=== PATIENT | male | born 1945 | race Caucasian/White ===

== ENCOUNTER 2019-06-25 07:22 | Emergency (ER) | payer MEDICARE, OTHER, SELFPAY ==
--- NOTE | ~2019-06-25 | CT_ITS ---
EXAMINATION: CTA abdomen pelvis EXAM DATE: 06/25/2019 09:25 INDICATION: Abdominal, groin pain, right flank pain radiating into groin. History kidney stones. Lupis victorino bypass. Renal artery aneurysm. TECHNIQUE: Spiral CT angiogram of the abdomen and pelvis was performed following intravenous injectio n of 100 mL Omnipaque 350. Axial, coronal and sagittal images were reviewed. The dose-length produc t (DLP) for this examination was 1346.74 mGy-cm. The exposure was tailored according to patient size (auto mA exposure control), and iterative reconstruction (ASIR) was used as additional dose reductio n technique. Comparison is made to prior examination from 02/10/2013. FINDINGS: There is a 1.6 cm right renal artery aneurysm, was 1.5 cm in 2013. The liver, spleen, adre nal glands and pancreas are unremarkable. Gallbladder is unremarkable. No biliary obstruction. Por laura and splenic veins are patent. Kidneys enhance symmetrically. There is no hydronephrosis. There is a 2 mm stone in the distal aspect of the right ureter, 2 cm from the ureterovesicular junction not obstructing at present. There is mild to moderate right perinephric fat stranding, mild on the left, may not be related to the ureteral stone. The prostate is unremarkable. The bladder is unremarkabl e. There is no retroperitoneal or pelvic lymphadenopathy. There is mild scattered arteriosclerotic disease. The appendix is normal. There are surgical changes from intact gastric bypass surgery. There is exp ected amount of colonic stool. No free intraperitoneal gas. Mild cardiomegaly. Small left inguina l fat-containing hernia. There is mild scattered colonic diverticulosis. There is no adjacent inflam matory change to suggest diverticulitis. The lung bases are unremarkable. There are no osteoblastic or osteolytic lesions identified. IMPRESSION: 1. Right distal ureteral 2 mm stone without hydronephrosis. Could be intermittently obstructing. 2. 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 3. Mild colonic diverticulosis. Reviewed, dictated and finalized at location A. IMPRESSION: 1. Right distal ureteral 2 mm stone without hydronephrosis. Could be intermitt ently obstructing. 2. 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 3. Mild colonic diverticulosis.
--- NOTE | 2019-06-25 07:33 | ED.GENADULT ---
HPI - General Adult General Chief complaint: Abdominal Pain Stated complaint: possible kidney stone History of Present Illness HPI narrative: Douglas is a 73-year-old man with a past medical history of diabetes, high blood pressure, and kidney stones, and a AAA that presented to the emergency department with right groin pain. He reported that he woke up around 4 in the morning with the pain in his right flank and groin. When he went to urinate the pain began worse. He reports 9/10 colicky pain on the right side. It feels just like his last kidney stone. He denies any fevers, chills, chest pain and near-syncope. He admits nausea but no vomiting with the pain. He has some mild shortness of breath when the pain is at its worst. Related Data Home Medications Medication Instructions Recorded Confirmed calcium carbonate [Calcium 500] 500 mg PO DAILY 06/25/19 06/25/19 ferrous sulfate 324 mg PO DAILY 06/25/19 06/25/19 glimepiride 2 mg PO DAILY 06/25/19 06/25/19 losartan 100 mg PO DAILY 06/25/19 06/25/19 lovastatin 5 mg PO DAILY 06/25/19 06/25/19 metformin 1,000 mg PO BID 06/25/19 06/25/19 multivitamin,aq-fexu-aupvytta 1 tablet PO DAILY 06/25/19 06/25/19 [Complete Multivitamin] vitamin I66-dfvle acid 1 kateyrna SUBLINGUAL DAILY 06/25/19 06/25/19 Allergies Allergy/AdvReac Type Severity Reaction Status Date / Time hydrochlorothiazide AdvReac Intermediate CRAMPING Verified 09/02/15 08:42 triamterene AdvReac Intermediate CRAMPING Verified 09/02/15 08:42 Review of Systems Constitutional: Constitutional: Reports as per HPI Eyes: Eyes: Reports no additional eye complaints ENT: Reports system reviewed and no additional complaints, except as documented Cardiovascular: Cardiovascular: Denies chest pain, Denies rapid heart rate and Denies radiating jaw, neck or arm pain Respiratory: Respiratory: Reports no additional respiratory complaints, Denies cough, Denies dyspnea and Denies wheezing Gastrointestinal: Gastrointestinal: Reports as per HPI Genitourinary: Genitourinary: Reports as per HPI Musculoskeletal: Musculoskeletal: Reports no additional musculoskeletal complaints Integumentary/Breasts: Skin/Breast: Reports system reviewed and no additional complaints, except as docu Neurologic: Reports system reviewed and no additional complaints, except as documented Psychiatric: Psychiatric: Reports no additional psychiatric complaints Endocrine: Endocrine: Reports no additional endocrine complaints Hematologic/Lymphatic: Hematologic/Lymphatic: Reports no additional hematologic/lymphatic complaints Allergic/Immunologic: Allergic/Immunologic: Reports no additional allergic/immunologic complaints Exam Const: General: no acute distress and alert Orientation/consciousness: patient oriented x3 Limitations: No altered mental status Other: was pacing around writhing in pain HENMT: Other: normocephalic, atraumatic Eyes: Conjunctivae: conjunctivae normal Pupils: Equal, round and reactive pupils present Neck: Neck: normal visual inspection Chest: Chest palpation & inspection: normal inspection of the chest Resp: Effort & Inspection: normal respiratory effort Auscultation: clear to auscultation bilaterally, no rales and no wheezes Cardio: Rate: regular rate Rhythm: regular rhythm Heart sounds: no murmurs GI: GI Palp: Yes Soft to palpation, No Tenderness to palpation present (GI) and No Guarding due to palpation present (GI) Other: no pulsating mass in the abdomen : General: Yes no CVA tenderness Testes: Testes normal Back/Spine/Pelvis: Back: no CVA tenderness Skin: General skin exam: normal color Rashes: no rashes Neuro: General: patient oriented x3 and moves all extremities Extrem: General: normal to inspection Psych: Mental Status: mental status grossly normal Course Course Emergency Course: Douglas was seen and evaluated. He was given Toradol, morphine and Zofran for his pain and nausea. I ordered la
[2019-06-25 07:35] VITALS: BP 165/91; PULSE 56; RESP 20; TEMP 36.9; O2SAT 98
[2019-06-25 07:39] LABS: Glucose Point of Care 164 (65-105)
[2019-06-25] MEDS: ONDANSETRON INJ 4 MG/2 ML VIAL IV PUSH (07:40)
[2019-06-25] MEDS: KETOROLAC 30 MG/ML VIAL (*BKC) IV PUSH (07:41)
[2019-06-25] MEDS: MORPHINE SULFATE 4 MG/ML INJ IV PUSH (07:45)
[2019-06-25 07:54] LABS: Basophils Absolute Auto 0.02 K/mm3 (0.00-0.10); Basophils Percent Auto 0.3 % (0.0-1.0); Eosinophils Absolute Auto 0.16 K/mm3 (0.02-0.50); Eosinophils Percent Auto 2.5 % (1.0-6.0); Hematocrit 40.3 % (37.0-46.0); Hemoglobin 13.9 g/dL (12.4-15.3); Immature Granulocyte Absolute 0.04 K/mm3 (0.00-0.00); Immature Granulocyte Percent A 0.6 % (0.0-0.0); Lymphocytes Absolute Auto 1.02 K/mm3 (1.10-4.50); Mean Corpuscular HGB Conc 34.5 g/dL (32.0-36.0); Mean Corpuscular Hemoglobin 29.8 pg (27.0-31.0); Mean Corpuscular Volume 86.5 fL (78.0-102.0); Mean Platelet Volume 9.2 fl (8.7-11.0); Monocytes Absolute Auto 0.47 K/mm3 (0.10-0.90); Monocytes Percent Auto 7.4 % (2.0-11.0); Neutrophils Absolute Auto 4.7 K/mm3 (1.7-7.2); Neutrophils Percent Auto 73.2 % (50.0-70.0); Platelet Count Result 179 K/mm3 (150-420); Red Blood Count 4.66 M/mm3 (4.70-6.10); Red Cell Distribution Width 12.9 % (11.6-14.4); White Blood Count 6.4 K/mm3 (4.8-10.8)
[2019-06-25 08:08] LABS: Lipase 243 U/L (73-393)
[2019-06-25 08:09] VITALS: BP 157/89; PULSE 58; RESP 20; O2SAT 98
[2019-06-25 08:16] LABS: Lactic Acid 2.3 mmol/L (0.4-2.0)
[2019-06-25 08:23] LABS: Add Urine Microscopic? YES; Appearance Urine Clear (Clear); Bilirubin Urine Negative (Negative); Blood Urine 3+ (Negative); Color Urine Yellow (Yellow); Glucose Urine UA Negative (Negative); Ketones Urine 1+ (Negative); Leukocyte Esterase Ur Negative (Negative); Nitrate Urine Negative (Negative); Protein Urine Negative (Negative); Specific Grav Ur 1.015 (1.010-1.020); Urobilinogen Urine 0.2 mg/dL (0.2-1.0); pH Urine 6.5 (5.0-8.0)
[2019-06-25 08:24] LABS: Alanine Aminotransferase 48 U/L (16-63); Albumin Level 3.4 g/dL (3.4-5.0); Alkaline Phosphatase 92 U/L (46-116); Anion Gap 13.9 mmol/L (7-16); Aspartate Amino Transferase 29 U/L (15-37); Bilirubin,Total 0.4 mg/dL (0.00-1.00); Blood Urea Nitrogen 16 mg/dL (7-18); Calcium 8.8 mg/dL (8.5-10.1); Carbon Dioxide 26 mmol/L (21-32); Chloride 103 mmol/L (98-108); Estimated CRCL calculation 69 ml/min; Estimated Glomerular Filt Rate > 60; Glucose 172 mg/dL (70-99); Osmolality Calculated 293 mOsm/kg (285-295); Potassium 3.9 mmol/L (3.5-5.1); Sodium 139 mmol/L (136-145); Total Protein 7.2 g/dL (6.4-8.2)
[2019-06-25 08:35] LABS: Bacteria Urine Trace /hpf; RBC Urine 21-50 /hpf (0-2); WBC Urine 0-3 /hpf (0-3)
[2019-06-25 09:10] VITALS: BP 185/100; PULSE 64; RESP 18; O2SAT 97
--- NOTE | 2019-06-25 09:10 | PC.NURSE ---
Pt. back from CT, reports pain is coming back againg since moving around and reports some nausea. Rates pain at about 5 again. ERP informed, order obtained.
[2019-06-25] MEDS: MORPHINE SULFATE 2 MG/ML INJ IV PUSH (09:12)
[2019-06-25 10:44] VITALS: BP 132/74; PULSE 64; RESP 20; O2SAT 99
== END 2019-06-25 10:49 | disposition home or self-care (01) ==
PROVIDERS: Emergency Provider Family Medicine; PCP Internal Medicine
DX: N20.1 Calculus of ureter (principal); E11.9 Type 2 diabetes mellitus without complications; I10 Essential (primary) hypertension
CPT/HCPCS: 36415; 74174; 80053; 81001; 83605; 83690; 85025; 96374; 96375; 96376; 99283; 99284; J1885; J2270; J2405; Q9965

== ENCOUNTER 2019-10-31 08:02 | Outpatient (CLI) | payer MEDICARE, SELFPAY ==
[2019-10-31 08:17] LABS: Add Urine Microscopic? YES; Appearance Urine Clear (Clear); Bilirubin Urine Negative (Negative); Blood Urine Negative (Negative); Color Urine Yellow (Yellow); Glucose Urine UA Negative (Negative); Ketones Urine Negative (Negative); Leukocyte Esterase Ur Trace LEU/UL (Negative); Nitrate Urine Negative (Negative); Protein Urine Negative (Negative); Specific Grav Ur 1.025 (1.010-1.020); Urobilinogen Urine 0.2 mg/dL (0.2-1.0); pH Urine 5.5 (5.0-8.0)
[2019-10-31 08:25] LABS: Hemoglobin A1C 7.7 % (<5.7)
[2019-10-31 08:27] LABS: Bacteria Urine 2+ /hpf; Squamous Epithelial Cell Urine Few /hpf (Few)
[2019-10-31 09:07] LABS: Creatinine Urine 112.45 mg/dL (40-278); MALB Creatinine Ratio 5.7 mg/g (0-30); Microalbumin Urine Random 6.5 mg/L
[2019-10-31 09:26] LABS: Alanine Aminotransferase 45 U/L (16-63); Albumin Level 3.4 g/dL (3.4-5.0); Alkaline Phosphatase 104 U/L (46-116); Anion Gap 10.3 mmol/L (7-16); Aspartate Amino Transferase 33 U/L (15-37); Bilirubin,Total 0.4 mg/dL (0.00-1.00); Blood Urea Nitrogen 14 mg/dL (7-18); Calcium 8.7 mg/dL (8.5-10.1); Carbon Dioxide 32 mmol/L (21-32); Chloride 103 mmol/L (98-108); Cholesterol 200 mg/dL (0-200); Creatine Kinase 46 U/L (39-308); Estimated Glomerular Filt Rate > 60; Glucose 135 mg/dL (70-99); HDL Direct 40 mg/dL (40-60); LDL Cholesterol Calculated 127 mg/dL (<130); Osmolality Calculated 294 mOsm/kg (285-295); Potassium 4.3 mmol/L (3.5-5.1); Sodium 141 mmol/L (136-145); Total Protein 7.1 g/dL (6.4-8.2); Triglycerides 164 mg/dL (0-150)
== END 2019-10-31 08:03 | disposition home or self-care (01) ==
LOC: CHSLAB 08:03
PROVIDERS: PCP Internal Medicine; Visit Provider Internal Medicine
DX: E78.2 Mixed hyperlipidemia (principal); E11.65 Type 2 diabetes mellitus with hyperglycemia
CPT/HCPCS: 36415; 80053; 80061; 81001; 82043; 82550; 83036

== ENCOUNTER 2019-11-14 07:44 | Outpatient (RCR) | payer MEDICARE, OTHER, SELFPAY ==
--- NOTE | 2019-11-14 07:58 | PTOPEVAL ---
Thank you for referring Douglas Lyons to [facility]. Please review, sign, date and return this plan of care AMBROCIO. I agree with and certify that the following plan of care is medically necessary. Referring Physician Date Admitting Provider: Attending Provider: Michael Walker MD Referring Provider: *PT Outpatient Evaluation Start: 11/14/19 07:01 Freq: Status: Active Protocol: Document 11/14/19 07:02 TRINY (Rec: 11/14/19 07:30 TRINY [id number]) Therapy Assessment Status Assessment Status Assessment Status Evaluation Outpatient Past Medical History Cardiovascular History Hx Aneurysm Yes: AAA Hx Hypercholesterolemia Yes Hx Hypertension Yes Genitourinary History Hx Kidney Stones Yes Endocrine History Hx Diabetes Yes Other History Hx Other Surgeries Yes: Gastric Bypass Evaluation Information Problem Diagnosis leg weakness, peripheral neuropathy Onset 11/08/19 Additional Evaluation Detail LEFS=[id number] Subjective Information Pt. reports that he has had Query Text:As Reported By Patient/ difficulty with balance for Family several years. He reports having rehabed in the past with success. He states that given that he cannot get out as much due to Covid 19, he has become sedentary and notes more weakness. He reports that stairs are becoming difficult and states that his bedroom is upstairs. He reports that he reaches out for stable objects with walking. He reports that he wants to make steps easier and states that he wants to improve his balance. Prior Level of Function Activity Level (Last 3 Months) Occupation retired Hand Dominance Right Activity of Daily Living Ability Independent Indoor/Home Mobility Independent Community Mobility Independent Stairs Ability Independent Functional Cognition (Planning, Shopping Independent , Taking Medications) Cooking Yes Cleaning Yes Laundry Yes Shopping Yes Driving Yes Home Setting Home Type House Environmental [place]
== END 2019-12-10 09:25 | disposition home or self-care (01) ==
LOC: CHSPT 07:44
PROVIDERS: PCP Internal Medicine; Visit Provider Internal Medicine
DX: G62.9 Polyneuropathy, unspecified (principal); M62.81 Muscle weakness (generalized); R26.2 Difficulty in walking, not elsewhere classified
CPT/HCPCS: 97110; 97112; 97161

== ENCOUNTER 2020-01-01 10:37 | Outpatient (CLI) | payer MEDICARE, SELFPAY ==
[2020-01-02 18:39] LABS: SARS-CoV-2 RNA PCR Negative
== END 2020-01-01 10:38 | disposition home or self-care (01) ==
PROVIDERS: PCP Internal Medicine; Visit Provider Internal Medicine
DX: Z20.828 Contact with and (suspected) exposure to other viral communicable diseases (principal)
CPT/HCPCS: 87635; C9803; U0003

== ENCOUNTER 2020-02-05 08:19 | Outpatient (CLI) | payer MEDICARE, SELFPAY ==
[2020-02-06 13:52] LABS: SARS-CoV-2 RNA PCR Negative
== END 2020-02-05 08:20 | disposition home or self-care (01) ==
LOC: CHSLAB 08:23
PROVIDERS: PCP Internal Medicine; Visit Provider Internal Medicine
DX: Z20.828 Contact with and (suspected) exposure to other viral communicable diseases (principal)
CPT/HCPCS: 87635; C9803; U0003

== ENCOUNTER 2020-02-12 08:01 | Outpatient (CLI) | payer MEDICARE, SELFPAY ==
[2020-02-12 08:13] LABS: Add Urine Microscopic? NO; Appearance Urine Clear (Clear); Bilirubin Urine Negative (Negative); Blood Urine Negative (Negative); Color Urine Yellow (Yellow); Glucose Urine UA Negative (Negative); Ketones Urine Negative (Negative); Leukocyte Esterase Ur Negative (Negative); Nitrate Urine Negative (Negative); Protein Urine Negative (Negative); Specific Grav Ur 1.025 (1.010-1.020); Urobilinogen Urine 0.2 mg/dL (0.2-1.0)
[2020-02-12 08:35] LABS: Hemoglobin A1C 7.9 % (<5.7)
[2020-02-12 08:39] LABS: Creatinine Urine 176.85 mg/dL (40-278); MALB Creatinine Ratio 10.2 mg/g (0-30); Microalbumin Urine Random 18.2 mg/L
[2020-02-12 09:47] LABS: Anion Gap 6 mmol/L (8-16); Blood Urea Nitrogen 14 mg/dL (7-18); Calcium 8.9 mg/dL (8.5-10.1); Carbon Dioxide 32 mmol/L (21-32); Chloride 105 mmol/L (98-108); Estimated Glomerular Filt Rate > 60; Glucose 143 mg/dL (70-99); Osmolality Calculated 298 mOsm/kg (285-295); Potassium 4.4 mmol/L (3.5-5.1); Prostate Specific Antigen 0.9 ng/mL (< OR = 4.0); Sodium 143 mmol/L (136-145)
== END 2020-02-12 08:02 | disposition home or self-care (01) ==
LOC: CHSLAB 08:03
PROVIDERS: PCP Internal Medicine; Visit Provider Internal Medicine
DX: E11.65 Type 2 diabetes mellitus with hyperglycemia (principal); I10 Essential (primary) hypertension; Z12.5 Encounter for screening for malignant neoplasm of prostate
CPT/HCPCS: 36415; 80048; 81003; 82043; 83036; 84153; G0103

== ENCOUNTER 2020-06-11 07:54 | Outpatient (CLI) | payer MEDICARE, SELFPAY ==
[2020-06-11 08:18] LABS: Creatinine Urine 184.78 mg/dL (40-278); MALB Creatinine Ratio 8.5 mg/g (0-30); Microalbumin Urine Random 15.8 mg/L
[2020-06-11 08:19] LABS: Hemoglobin A1C 7.6 % (<5.7)
[2020-06-11 08:42] LABS: Anion Gap 6 mmol/L (8-16); Blood Urea Nitrogen 15 mg/dL (7-18); Calcium 8.8 mg/dL (8.5-10.1); Carbon Dioxide 32 mmol/L (21-32); Chloride 102 mmol/L (98-108); Estimated Glomerular Filt Rate > 60; Glucose 148 mg/dL (70-99); Osmolality Calculated 293 mOsm/kg (285-295); Potassium 4.4 mmol/L (3.5-5.1); Sodium 140 mmol/L (136-145)
== END 2020-06-11 07:55 | disposition home or self-care (01) ==
LOC: CHSLAB 07:56
PROVIDERS: PCP Internal Medicine; Visit Provider Internal Medicine
DX: E11.65 Type 2 diabetes mellitus with hyperglycemia (principal)
CPT/HCPCS: 36415; 80048; 82043; 83036

== ENCOUNTER 2020-06-19 13:14 | Outpatient (CLI) | payer MEDICARE, OTHER, SELFPAY ==
--- NOTE | ~2020-06-19 | US_ITS ---
EXAMINATION: US carotid duplex BI DATE: 06/19/2020 13:38 INDICATION: Transient ischemic attack. TECHNIQUE: Grayscale, color Doppler, and pulsed Doppler images of the cervical carotid arteries were obtained. The degree of vessel stenosis is placed in one of the following categories: normal, <50%, 5 0-69%, >=70% but less than near-occlusion, near-occlusion, or total occlusion. Note that percent sten osis relative to normal distal artery lumen diameter is indirectly measured from velocity measurement s as described by Sal, et al. Radiology 2003; 229:340-346. COMPARISON: None. FINDINGS: RIGHT: The right common carotid artery (CCA) peak systolic velocity (PSV) is 128 cm/s. The right internal ca rotid artery (ICA) PSV is 66 cm/s. The right ICA end-diastolic velocity (EDV) is 21 cm/s. The right I CA/CCA PSV ratio is 0.5. Grayscale and color Doppler images yield an estimate of 0% diameter reductio n from plaque in the ICA. There is antegrade flow in the right vertebral artery. LEFT: The left CCA PSV is 124 cm/s. The left ICA PSV is 74 cm/s. The left ICA EDV is 14 cm/s. The left ICA/ CCA PSV ratio is 0.6. Grayscale and color Doppler images yield an estimate of 0% diameter reduction f rom plaque in the ICA. There is antegrade flow in the left vertebral artery. IMPRESSION: 1. Normal internal carotid arteries. Reviewed, dictated and finalized at location A. RETTE SELLER
== END 2020-06-19 13:15 | disposition home or self-care (01) ==
LOC: CHSIMG 13:16
PROVIDERS: PCP Internal Medicine; Visit Provider Internal Medicine
DX: G45.9 Transient cerebral ischemic attack, unspecified (principal); R56.9 Unspecified convulsions
CPT/HCPCS: 93880

== ENCOUNTER 2020-06-21 06:51 | Outpatient (CLI) | payer MEDICARE, OTHER, SELFPAY ==
--- NOTE | ~2020-06-21 | MR_ITS ---
EXAMINATION: MR brain/brain stem wo con DATE: 06/21/2020 08:04 INDICATION: Seizures. TECHNIQUE: Magnetic resonance imaging (MRI) of the brain and brainstem was performed without intraven ous contrast. Sequences included sagittal and axial T1-weighted FSE, axial diffusion-weighted FS EPI, axial T2*-weighted GRE, axial T2-weighted FLAIR Propeller, axial T2-weighted Propeller, coronal T2-w eighted FLAIR, and coronal T1-weighted 3D FSPGR. Apparent diffusion coefficient (ADC) maps were creat ed. COMPARISON: Brain MRI 10/02/2016 FINDINGS: There are scattered areas of nonspecific increased T2-weighted signal intensity in the cere bral white matter and stuart, which is within normal limits for the patient's age. The hippocampi are n ormal and symmetric. There is no intracranial hemorrhage, acute infarction, or abnormal intracranial mass lesion. The ventricles are normal in size. There is a mucous retention cyst in left maxillary si nus. The mastoid air cells are normal. There are likely changes of left ocular lens replacement surge ry. IMPRESSION: 1. Normal aging brain. Reviewed, dictated and finalized at location A. PIECE ASSEMBLER IMPRESSION: 1. Normal aging brain.
== END 2020-06-21 06:52 | disposition home or self-care (01) ==
LOC: CHSIMG 06:55
PROVIDERS: PCP Internal Medicine; Visit Provider Internal Medicine
DX: G45.9 Transient cerebral ischemic attack, unspecified (principal); R56.9 Unspecified convulsions
CPT/HCPCS: 70551

== ENCOUNTER 2020-06-27 07:40 | Outpatient (CLI) | payer MEDICARE, OTHER, SELFPAY ==
--- NOTE | 2020-07-09 11:36 | WPDNEUROLOGY ---
Neurology EEG Report General Information Date of Study: 06/27/20 TEST eeg DIAGNOSIS seizures CONDITION OF RECORDING awake and drowsy EEG NUMBER [id number] CLINICAL HISTORY patient reported for years he has had episodes, always while sleeping, shaking, feeling weird and then eyes rolled back, subsequently little confused for a few minutes then is fine. EEG DESCRIPTION basic resting occipital frequency consists of large amount of low voltage 9 to 11 hertz per second alpha admixed with low-voltage 15 to 18 hertz per second beta. During drowsiness low-voltage beta activity seen diffusely. Multiple EKG regular artifacts are seen. Photic stimulation produced normal drive, hyperventilation not done. Non paroxysmal ,nonfocal, nonlateralizing. IMPRESSION Normal record
== END 2020-06-27 07:41 | disposition home or self-care (01) ==
PROVIDERS: PCP Internal Medicine; Visit Provider Internal Medicine
DX: R56.9 Unspecified convulsions (principal)
CPT/HCPCS: 95816

== ENCOUNTER 2020-08-15 07:59 | Outpatient (CLI) | payer MEDICARE, SELFPAY ==
[2020-08-15 08:55] LABS: Anion Gap 5 mmol/L (8-16); Blood Urea Nitrogen 21 mg/dL (7-18); Carbon Dioxide 29 mmol/L (21-32); Chloride 101 mmol/L (98-108); Estimated Glomerular Filt Rate > 60; Glucose 214 mg/dL (70-99); Osmolality Calculated 289 mOsm/kg (285-295); Potassium 5.3 mmol/L (3.5-5.1); Sodium 135 mmol/L (136-145)
== END 2020-08-15 08:00 | disposition home or self-care (01) ==
PROVIDERS: PCP Internal Medicine; Visit Provider Internal Medicine
DX: I10 Essential (primary) hypertension (principal)
CPT/HCPCS: 36415; 80048

== ENCOUNTER 2021-01-15 07:53 | Outpatient (CLI) | payer MEDICARE, SELFPAY ==
[2021-01-15 08:07] LABS: Add Urine Microscopic? NO; Appearance Urine Clear (Clear); Bilirubin Urine Negative (Negative); Blood Urine Negative (Negative); Color Urine Light Yellow (Yellow); Glucose Urine UA Negative (Negative); Ketones Urine Negative (Negative); Leukocyte Esterase Ur Negative LEU/UL (Negative); Nitrate Urine Negative (Negative); Protein Urine Negative (Negative); Specific Grav Ur 1.025 (1.010-1.020); Urobilinogen Urine 0.2 mg/dL (0.2-1.0)
[2021-01-15 08:15] LABS: Hemoglobin A1C 7.9 % (<5.7)
[2021-01-15 08:46] LABS: Creatinine Urine 137.03 mg/dL (40-278); MALB Creatinine Ratio 9.4 mg/g (0-30); Microalbumin Urine Random < 13.0 mg/L
[2021-01-15 09:03] LABS: Alanine Aminotransferase 58 U/L (16-63); Albumin Level 3.5 g/dL (3.4-5.0); Alkaline Phosphatase 82 U/L (46-116); Anion Gap 10 mmol/L (8-16); Aspartate Amino Transferase 28 U/L (15-37); Bilirubin,Total 0.3 mg/dL (0.00-1.00); Blood Urea Nitrogen 17 mg/dL (7-18); Calcium 8.6 mg/dL (8.5-10.1); Carbon Dioxide 28 mmol/L (21-32); Chloride 104 mmol/L (98-108); Cholesterol 199 mg/dL (0-200); Creatine Kinase 55 U/L (39-308); Estimated Glomerular Filt Rate > 60; Glucose 130 mg/dL (70-99); HDL Direct 37 mg/dL (40-60); LDL Cholesterol Calculated 103 mg/dL (<130); Osmolality Calculated 297 mOsm/kg (285-295); Potassium 4.7 mmol/L (3.5-5.1); Sodium 142 mmol/L (136-145); Total Protein 7.3 g/dL (6.4-8.2); Triglycerides 294 mg/dL (0-150)
[2021-01-18 23:09] LABS: Vitamin D 25 Hydroxy 36 ng/mL (30-100)
== END 2021-01-15 07:54 | disposition home or self-care (01) ==
LOC: CHSLAB 07:55
PROVIDERS: PCP Internal Medicine; Visit Provider Internal Medicine
DX: E11.65 Type 2 diabetes mellitus with hyperglycemia (principal); E55.9 Vitamin D deficiency, unspecified; E78.5 Hyperlipidemia, unspecified; I10 Essential (primary) hypertension
CPT/HCPCS: 36415; 80053; 80061; 81003; 82043; 82306; 82550; 83036

== ENCOUNTER 2021-04-13 07:42 | Outpatient (CLI) | payer MEDICARE, SELFPAY ==
[2021-04-13 08:07] LABS: Hemoglobin A1C 8.2 % (<5.7)
[2021-04-13 08:31] LABS: Anion Gap 11 mmol/L (8-16); Blood Urea Nitrogen 21 mg/dL (7-18); Calcium 8.6 mg/dL (8.5-10.1); Carbon Dioxide 30 mmol/L (21-32); Chloride 104 mmol/L (98-108); Cholesterol 173 mg/dL (0-200); Creatine Kinase 56 U/L (39-308); Estimated Glomerular Filt Rate > 60; Glucose 137 mg/dL (70-99); HDL Direct 42 mg/dL (40-60); LDL Cholesterol Calculated 87 mg/dL (<130); Osmolality Calculated 305 mOsm/kg (285-295); Potassium 4.5 mmol/L (3.5-5.1); Sodium 145 mmol/L (136-145); Triglycerides 221 mg/dL (0-150)
== END 2021-04-13 07:43 | disposition home or self-care (01) ==
LOC: CHSLAB 07:44
PROVIDERS: PCP Internal Medicine; Visit Provider Internal Medicine
DX: E78.2 Mixed hyperlipidemia (principal); E11.65 Type 2 diabetes mellitus with hyperglycemia
CPT/HCPCS: 36415; 80048; 80061; 82550; 83036

== ENCOUNTER 2021-09-25 07:41 | Outpatient (CLI) | payer MEDICARE, OTHER, SELFPAY ==
[2021-09-25 07:59] LABS: Basophils Absolute Auto 0.04 K/mm3 (0.00-0.10); Basophils Percent Auto 0.6 % (0.0-1.0); Eosinophils Absolute Auto 0.31 K/mm3 (0.02-0.50); Eosinophils Percent Auto 4.7 % (1.0-6.0); Hematocrit 36.8 % (37.0-46.0); Hemoglobin 12.3 g/dL (12.4-15.3); Immature Granulocyte Absolute 0.07 K/mm3 (0.00-0.00); Immature Granulocyte Percent A 1.1 % (0.0-0.0); Lymphocytes Absolute Auto 1.52 K/mm3 (1.10-4.50); Lymphocytes Percent Auto 22.8 % (18.0-42.0); Mean Corpuscular HGB Conc 33.4 g/dL (32.0-36.0); Mean Corpuscular Hemoglobin 29.9 pg (27.0-31.0); Mean Corpuscular Volume 89.5 fL (78.0-102.0); Mean Platelet Volume 8.9 fl (8.7-11.0); Monocytes Absolute Auto 0.62 K/mm3 (0.10-0.90); Monocytes Percent Auto 9.3 % (2.0-11.0); Neutrophils Absolute Auto 4.1 K/mm3 (1.7-7.2); Neutrophils Percent Auto 61.5 % (50.0-70.0); Platelet Count Result 200 K/mm3 (150-420); Red Blood Count 4.11 M/mm3 (4.70-6.10); Red Cell Distribution Width 12.7 % (11.6-14.4); White Blood Count 6.7 K/mm3 (4.8-10.8)
[2021-09-25 08:18] LABS: Creatinine Urine 140.08 mg/dL (40-278); MALB Creatinine Ratio 9.2 mg/g (0-30); Microalbumin Urine Random < 13.0 mg/L
[2021-09-25 08:25] LABS: Add Urine Microscopic? NO; Appearance Urine Clear (Clear); Bilirubin Urine Negative (Negative); Blood Urine Negative (Negative); Color Urine Yellow (Yellow); Glucose Urine UA Negative (Negative); Ketones Urine Negative (Negative); Leukocyte Esterase Ur Negative LEU/UL (Negative); Nitrate Urine Negative (Negative); Protein Urine Negative (Negative); Specific Grav Ur 1.025 (1.010-1.020); Urobilinogen Urine 0.2 mg/dL (0.2-1.0)
[2021-09-25 08:49] LABS: Alanine Aminotransferase 85 U/L (16-63); Albumin Level 3.3 g/dL (3.4-5.0); Alkaline Phosphatase 102 U/L (46-116); Anion Gap 6 mmol/L (8-16); Aspartate Amino Transferase 38 U/L (15-37); Bilirubin,Total 0.2 mg/dL (0.00-1.00); Blood Urea Nitrogen 25 mg/dL (7-18); Carbon Dioxide 26 mmol/L (21-32); Chloride 107 mmol/L (98-108); Cholesterol 178 mg/dL (0-200); Creatine Kinase 46 U/L (39-308); Estimated Glomerular Filt Rate > 60; Glucose 118 mg/dL (70-99); HDL Direct 43 mg/dL (40-60); LDL Cholesterol Calculated 76 mg/dL (<130); Osmolality Calculated 293 mOsm/kg (285-295); Potassium 4.4 mmol/L (3.5-5.1); Prostate Specific Antigen 1.3 ng/mL (< OR = 4.0); Sodium 139 mmol/L (136-145); Total Protein 7.7 g/dL (6.4-8.2); Triglycerides 297 mg/dL (0-150); Uric Acid 6.9 mg/dL (3.5-7.2)
[2021-09-25 09:31] LABS: Hemoglobin A1C 8.7 % (<5.7)
[2021-09-29 04:41] LABS: Hepatitis A Antibody IgM Nonreactive; Hepatitis B Core Antibody Nonreactive (Nonreactive); Hepatitis B Surface Antigen Nonreactive (Nonreactive); Hepatitis C Signal to Cutoff 0.01 ratio (<1.00); Hepatitis C Virus Antibody Nonreactive (Nonreactive)
[2021-09-30 14:04] LABS: Vitamin D 25 Hydroxy 45 ng/mL (30-100)
== END 2021-09-25 07:42 | disposition home or self-care (01) ==
LOC: CHSLAB 07:44
PROVIDERS: PCP Internal Medicine; Visit Provider Internal Medicine
DX: E78.5 Hyperlipidemia, unspecified (principal); I10 Essential (primary) hypertension; E79.0 Hyperuricemia without signs of inflammatory arthritis and tophaceous disease; Z12.5 Encounter for screening for malignant neoplasm of prostate; N39.0 Urinary tract infection, site not specified; E55.9 Vitamin D deficiency, unspecified; E11.65 Type 2 diabetes mellitus with hyperglycemia; R74.9 Abnormal serum enzyme level, unspecified; R74.01 Elevation of levels of liver transaminase levels
CPT/HCPCS: 36415; 80053; 80061; 80074; 81003; 82043; 82306; 82550; 83036; 84153; 84550; 85025; G0103

== ENCOUNTER 2021-11-18 07:32 | Outpatient (CLI) | payer MEDICARE, SELFPAY ==
[2021-11-18 09:17] LABS: Alanine Aminotransferase 56 U/L (16-63); Albumin Level 3.3 g/dL (3.4-5.0); Alkaline Phosphatase 85 U/L (46-116); Anion Gap 9 mmol/L (8-16); Aspartate Amino Transferase 36 U/L (15-37); Bilirubin,Total 0.2 mg/dL (0.00-1.00); Blood Urea Nitrogen 21 mg/dL (7-18); Calcium 8.7 mg/dL (8.5-10.1); Carbon Dioxide 24 mmol/L (21-32); Chloride 106 mmol/L (98-108); Estimated Glomerular Filt Rate 59; Glucose 259 mg/dL (70-99); Osmolality Calculated 300 mOsm/kg (285-295); Potassium 4.6 mmol/L (3.5-5.1); Sodium 139 mmol/L (136-145); Total Protein 6.6 g/dL (6.4-8.2)
== END 2021-11-18 07:33 | disposition home or self-care (01) ==
LOC: CHSLAB 07:34
PROVIDERS: PCP Internal Medicine; Visit Provider Internal Medicine
DX: R94.5 Abnormal results of liver function studies (principal)
CPT/HCPCS: 36415; 80053

== ENCOUNTER 2022-01-12 07:53 | Outpatient (CLI) | payer MEDICARE, SELFPAY ==
[2022-01-12 08:34] LABS: Hemoglobin A1C 7.4 % (<5.7)
[2022-01-12 08:38] LABS: Alanine Aminotransferase 73 U/L (16-63); Albumin Level 3.4 g/dL (3.4-5.0); Alkaline Phosphatase 97 U/L (46-116); Anion Gap 8 mmol/L (8-16); Aspartate Amino Transferase 37 U/L (15-37); Bilirubin,Total 0.2 mg/dL (0.00-1.00); Blood Urea Nitrogen 18 mg/dL (7-18); Calcium 8.4 mg/dL (8.5-10.1); Carbon Dioxide 29 mmol/L (21-32); Chloride 107 mmol/L (98-108); Estimated Glomerular Filt Rate > 60; Glucose 97 mg/dL (70-99); Osmolality Calculated 299 mOsm/kg (285-295); Potassium 4.5 mmol/L (3.5-5.1); Sodium 144 mmol/L (136-145)
== END 2022-01-12 07:54 | disposition home or self-care (01) ==
LOC: CHSLAB 07:54
PROVIDERS: PCP Internal Medicine; Visit Provider Internal Medicine
DX: E11.65 Type 2 diabetes mellitus with hyperglycemia (principal)
CPT/HCPCS: 36415; 80053; 83036

== ENCOUNTER 2022-01-27 12:32 | Outpatient (CLI) | payer MEDICARE, SELFPAY ==
[2022-01-27 12:47] LABS: Basophils Absolute Auto 0.05 K/mm3 (0.00-0.10); Basophils Percent Auto 0.7 % (0.0-1.0); Eosinophils Absolute Auto 0.31 K/mm3 (0.02-0.50); Eosinophils Percent Auto 4.4 % (1.0-6.0); Hemoglobin 12.1 g/dL (12.4-15.3); Immature Granulocyte Absolute 0.07 K/mm3 (0.00-0.00); Immature Reticulocyte Fraction 11.9 % (2.0-16.52); Lymphocytes Absolute Auto 1.89 K/mm3 (1.10-4.50); Mean Corpuscular HGB Conc 33.6 g/dL (32.0-36.0); Mean Corpuscular Hemoglobin 30.5 pg (27.0-31.0); Mean Corpuscular Volume 90.7 fL (78.0-102.0); Mean Platelet Volume 9.1 fl (8.7-11.0); Monocytes Absolute Auto 0.57 K/mm3 (0.10-0.90); Monocytes Percent Auto 8.2 % (2.0-11.0); Neutrophils Absolute Auto 4.1 K/mm3 (1.7-7.2); Neutrophils Percent Auto 58.7 % (50.0-70.0); Platelet Count Result 224 K/mm3 (150-420); Red Blood Count 3.97 M/mm3 (4.70-6.10); Reticulocyte Percent 1.83 % (0.50-1.50); Reticulocytes Absolute 0.07 M/mm3 (0.02-0.1)
[2022-01-27 13:38] LABS: Ferritin 79 ng/mL (26-388); Iron 62 ug/dL (65-175)
[2022-01-27 13:51] LABS: Vitamin B12 > 2000 pg/mL (193-986)
== END 2022-01-27 12:33 | disposition home or self-care (01) ==
LOC: CHSLAB 12:34
PROVIDERS: PCP Internal Medicine; Visit Provider Internal Medicine
DX: D64.9 Anemia, unspecified (principal)
CPT/HCPCS: 36415; 82607; 82728; 83540; 85025; 85046

== ENCOUNTER 2022-02-10 09:50 | Outpatient (CLI) | payer MEDICARE, SELFPAY ==
[2022-02-10 10:09] LABS: Occult Blood Negative (Negative)
[2022-02-10 10:09] LABS: Occult Blood Negative (Negative)
[2022-02-10 10:09] LABS: Occult Blood Negative (Negative)
== END 2022-02-10 09:51 | disposition home or self-care (01) ==
LOC: CHSLAB 09:51
PROVIDERS: PCP Internal Medicine; Visit Provider Internal Medicine
DX: D64.9 Anemia, unspecified (principal)
CPT/HCPCS: 82272

== ENCOUNTER 2022-04-17 07:36 | Outpatient (CLI) | payer MEDICARE, SELFPAY ==
[2022-04-17 07:49] LABS: Basophils Absolute Auto 0.06 K/mm3 (0.00-0.10); Basophils Percent Auto 0.9 % (0.0-1.0); Eosinophils Absolute Auto 0.27 K/mm3 (0.02-0.50); Hematocrit 36.7 % (37.0-46.0); Hemoglobin 12.4 g/dL (12.4-15.3); Immature Granulocyte Absolute 0.04 K/mm3 (0.00-0.00); Immature Granulocyte Percent A 0.6 % (0.0-0.0); Lymphocytes Absolute Auto 1.81 K/mm3 (1.10-4.50); Lymphocytes Percent Auto 26.7 % (18.0-42.0); Mean Corpuscular HGB Conc 33.8 g/dL (32.0-36.0); Mean Corpuscular Hemoglobin 30.5 pg (27.0-31.0); Mean Corpuscular Volume 90.4 fL (78.0-102.0); Monocytes Absolute Auto 0.52 K/mm3 (0.10-0.90); Monocytes Percent Auto 7.7 % (2.0-11.0); Neutrophils Absolute Auto 4.1 K/mm3 (1.7-7.2); Neutrophils Percent Auto 60.1 % (50.0-70.0); Platelet Count Result 199 K/mm3 (150-420); Red Blood Count 4.06 M/mm3 (4.70-6.10); Red Cell Distribution Width 12.8 % (11.6-14.4); Reticulocyte Hemoglobin Conten 33.9 pg (28.0-35.0); Reticulocytes Absolute 0.07 M/mm3 (0.02-0.1); White Blood Count 6.8 K/mm3 (4.8-10.8)
[2022-04-17 07:52] LABS: Add Urine Microscopic? NO; Appearance Urine Clear (Clear); Bilirubin Urine Negative (Negative); Blood Urine Negative (Negative); Color Urine Light Yellow (Yellow); Glucose Urine UA Negative (Negative); Ketones Urine Negative (Negative); Leukocyte Esterase Ur Negative LEU/UL (Negative); Nitrate Urine Negative (Negative); Protein Urine Negative (Negative); Specific Grav Ur >= 1.030 (1.010-1.020); Urobilinogen Urine 0.2 mg/dL (0.2-1.0)
[2022-04-17 08:01] LABS: Creatinine Urine 127.26 mg/dL (40-278); MALB Creatinine Ratio 10.2 mg/g (0-30); Microalbumin Urine Random < 13.0 mg/L
[2022-04-17 08:03] LABS: Hemoglobin A1C 6.8 % (<5.7)
[2022-04-17 08:39] LABS: Alanine Aminotransferase 92 U/L (16-63); Albumin Level 3.5 g/dL (3.4-5.0); Alkaline Phosphatase 100 U/L (46-116); Anion Gap 7 mmol/L (8-16); Aspartate Amino Transferase 44 U/L (15-37); Bilirubin,Total 0.2 mg/dL (0.00-1.00); Blood Urea Nitrogen 21 mg/dL (7-18); Calcium 8.4 mg/dL (8.5-10.1); Carbon Dioxide 29 mmol/L (21-32); Chloride 103 mmol/L (98-108); Cholesterol 172 mg/dL (0-200); Creatine Kinase 40 U/L (39-308); Estimated Glomerular Filt Rate 60; Free T3 2.61 pg/mL (2.18-3.98); Free T4 Free Thyroxine 0.82 ng/dL (0.76-1.46); Glucose 113 mg/dL (70-99); HDL Direct 42 mg/dL (40-60); LDL Cholesterol Calculated 69 mg/dL (<130); Magnesium 1.8 mg/dL (1.8-2.4); Osmolality Calculated 292 mOsm/kg (285-295); Potassium 4.5 mmol/L (3.5-5.1); Sodium 139 mmol/L (136-145); Thyroid Stimulating Hormone 1.27 uIU/mL (0.36-3.74); Total Protein 7.2 g/dL (6.4-8.2); Triglycerides 303 mg/dL (0-150); Uric Acid 7.1 mg/dL (3.5-7.2)
[2022-04-21 05:07] LABS: Zinc 71 mcg/dL (60-130)
[2022-04-21 16:44] LABS: Vitamin D 25 Hydroxy 51 ng/mL (30-100)
[2022-04-24 18:36] LABS: Vitamin A 88 mcg/dL (38-98)
== END 2022-04-17 07:37 | disposition home or self-care (01) ==
LOC: CHSLAB 07:37
PROVIDERS: PCP Internal Medicine; Visit Provider Internal Medicine
DX: I10 Essential (primary) hypertension (principal); D64.9 Anemia, unspecified; E11.65 Type 2 diabetes mellitus with hyperglycemia; E78.2 Mixed hyperlipidemia; E79.0 Hyperuricemia without signs of inflammatory arthritis and tophaceous disease; Z98.84 Bariatric surgery status; K90.9 Intestinal malabsorption, unspecified
CPT/HCPCS: 36415; 80053; 80061; 81003; 82043; 82306; 82550; 83036; 83735; 84439; 84443; 84481; 84550; 84590; 84630; 85025; 85046

== ENCOUNTER 2022-04-30 10:57 | Outpatient (CLI) | payer MEDICARE, SELFPAY ==
[2022-04-30 12:24] LABS: Ferritin 83 ng/mL (26-388); GGT 167 U/L (15-85); Iron 94 ug/dL (65-175)
[2022-05-03 19:13] LABS: Hepatitis B Surface Antigen Nonreactive (Nonreactive); Hepatitis C Signal to Cutoff 0.02 ratio (<1.00); Hepatitis C Virus Antibody Nonreactive (Nonreactive)
[2022-05-05 10:57] LABS: Mitochondrial (M2) Ab (IgG) <=20.0 U (<=20.0)
[2022-05-05 20:53] LABS: Actin Antibody (IgG) <20 U (<20)
== END 2022-04-30 10:58 | disposition home or self-care (01) ==
LOC: CHSLAB 10:59
PROVIDERS: PCP Internal Medicine; Visit Provider Internal Medicine
DX: R74.01 Elevation of levels of liver transaminase levels (principal)
CPT/HCPCS: 36415; 82728; 82977; 83516; 83520; 83540; 86038; 86706; 86803; 87340

== ENCOUNTER 2022-05-04 09:44 | Outpatient (CLI) | payer MEDICARE, OTHER, SELFPAY ==
--- NOTE | ~2022-05-04 | US_ITS ---
Limited Abdominal Sonogram: Real-time sonographic imaging of the right upper quadrant was performed. Clinical History: Abnormal LFTs Findings: The liver appears mildly heterogeneous/echogenic, with no evidence of mass lesion or bile duct dilatation. It measures 21 cm in length. Main portal vein demonstrates normal direction of flow. The gallbladder is well distended, and appears normal with no evidence of gallstone or wall thickeni ng. The common bile duct measures 5 mm. The visualized pancreas, aorta, and IVC are unremarkable. Ri ght kidney measures 11.7 cm in length, without hydronephrosis. Impression: Diffuse fatty infiltration of the liver with associated hepatomegaly. Reviewed, dictated and finalized at location M. H BLEACHING RANGE OPERATOR CHIEF Impression: Diffuse fatty infiltration of the liver with associated hepatomegaly.
== END 2022-05-04 09:45 | disposition home or self-care (01) ==
LOC: CHSIMG 09:46
PROVIDERS: PCP Internal Medicine; Visit Provider Internal Medicine
DX: R74.01 Elevation of levels of liver transaminase levels (principal); K76.0 Fatty (change of) liver, not elsewhere classified; R16.0 Hepatomegaly, not elsewhere classified
CPT/HCPCS: 76705

== ENCOUNTER 2022-08-02 07:28 | Outpatient (CLI) | payer MEDICARE, OTHER, SELFPAY ==
[2022-08-02 08:16] LABS: Alanine Aminotransferase 89 U/L (16-63); Albumin Level 3.5 g/dL (3.4-5.0); Alkaline Phosphatase 95 U/L (46-116); Anion Gap 9 mmol/L (8-16); Aspartate Amino Transferase 44 U/L (15-37); Bilirubin,Total 0.3 mg/dL (0.00-1.00); Blood Urea Nitrogen 19 mg/dL (7-18); Calcium 8.6 mg/dL (8.5-10.1); Carbon Dioxide 27 mmol/L (21-32); Chloride 106 mmol/L (98-108); Estimated Glomerular Filt Rate > 60; Glucose 114 mg/dL (70-99); Osmolality Calculated 297 mOsm/kg (285-295); Potassium 4.8 mmol/L (3.5-5.1); Sodium 142 mmol/L (136-145); Total Protein 7.2 g/dL (6.4-8.2)
== END 2022-08-02 07:29 | disposition home or self-care (01) ==
PROVIDERS: PCP Internal Medicine; Visit Provider Internal Medicine
DX: R94.5 Abnormal results of liver function studies (principal)
CPT/HCPCS: 36415; 80053

== ENCOUNTER 2022-10-18 07:54 | Outpatient (CLI) | payer MEDICARE, SELFPAY ==
[2022-10-18 08:14] LABS: Appearance Urine Clear (Clear); Basophils Absolute Auto 0.03 K/mm3 (0.00-0.10); Basophils Percent Auto 0.4 % (0.0-1.0); Bilirubin Urine Negative (Negative); Blood Urine Negative (Negative); Color Urine Light Yellow (Yellow); Eosinophils Absolute Auto 0.26 K/mm3 (0.02-0.50); Eosinophils Percent Auto 3.8 % (1.0-6.0); Glucose Urine UA Negative (Negative); Hematocrit 36.5 % (37.0-46.0); Immature Granulocyte Absolute 0.05 K/mm3 (0.00-0.00); Immature Granulocyte Percent A 0.7 % (0.0-0.0); Ketones Urine Negative (Negative); Leukocyte Esterase Ur Negative (Negative); Lymphocytes Absolute Auto 1.56 K/mm3 (1.10-4.50); Lymphocytes Percent Auto 22.7 % (18.0-42.0); Mean Corpuscular HGB Conc 32.9 g/dL (32.0-36.0); Mean Corpuscular Hemoglobin 30.2 pg (27.0-31.0); Mean Corpuscular Volume 91.7 fL (78.0-102.0); Mean Platelet Volume 9.3 fl (8.7-11.0); Monocytes Percent Auto 8.7 % (2.0-11.0); Neutrophils Absolute Auto 4.4 K/mm3 (1.7-7.2); Neutrophils Percent Auto 63.7 % (50.0-70.0); Nitrate Urine Negative (Negative); Platelet Count Result 208 K/mm3 (150-420); Protein Urine Negative (Negative); Red Blood Count 3.98 M/mm3 (4.70-6.10); Red Cell Distribution Width 12.9 % (11.6-14.4); Specific Grav Ur >= 1.030 (1.010-1.020); Urobilinogen Urine 0.2 mg/dL (0.2-1.0); White Blood Count 6.9 K/mm3 (4.8-10.8); pH Urine 5.5 (5.0-8.0)
[2022-10-18 08:17] LABS: Add Urine Microscopic? NO
[2022-10-18 08:25] LABS: Creatinine Urine 131.07 mg/dL (40-278); MALB Creatinine Ratio 10.2 mg/g (0-30); Microalbumin Urine Random 13.5 mg/L
[2022-10-18 09:23] LABS: Alanine Aminotransferase 78 U/L (16-63); Albumin Level 3.2 g/dL (3.4-5.0); Alkaline Phosphatase 99 U/L (46-116); Anion Gap 8 mmol/L (8-16); Aspartate Amino Transferase 39 U/L (15-37); Bilirubin,Total 0.2 mg/dL (0.00-1.00); Blood Urea Nitrogen 19 mg/dL (7-18); Calcium 8.7 mg/dL (8.5-10.1); Carbon Dioxide 27 mmol/L (21-32); Chloride 109 mmol/L (98-108); Cholesterol 154 mg/dL (0-200); Creatine Kinase 44 U/L (39-308); Estimated Glomerular Filt Rate > 60; Ferritin 67 ng/mL (26-388); Free T4 Free Thyroxine 0.75 ng/dL (0.76-1.46); Glucose 94 mg/dL (70-99); HDL Direct 41 mg/dL (40-60); Iron 94 ug/dL (65-175); LDL Cholesterol Calculated 63 mg/dL (<130); Osmolality Calculated 300 mOsm/kg (285-295); Potassium 4.5 mmol/L (3.5-5.1); Prostate Specific Antigen 1.8 ng/mL (< OR = 4.0); Sodium 144 mmol/L (136-145); Thyroid Stimulating Hormone 1.29 uIU/mL (0.36-3.74); Total Protein 6.9 g/dL (6.4-8.2); Triglycerides 251 mg/dL (0-150)
[2022-10-18 09:25] LABS: Vitamin B12 > 2000 pg/mL (193-986)
== END 2022-10-18 07:55 | disposition home or self-care (01) ==
LOC: CHSLAB 07:56
PROVIDERS: PCP Internal Medicine; Visit Provider Internal Medicine
DX: I10 Essential (primary) hypertension (principal); E78.2 Mixed hyperlipidemia; E79.0 Hyperuricemia without signs of inflammatory arthritis and tophaceous disease; D64.9 Anemia, unspecified; E11.42 Type 2 diabetes mellitus with diabetic polyneuropathy; Z12.5 Encounter for screening for malignant neoplasm of prostate
CPT/HCPCS: 36415; 80053; 80061; 81003; 82043; 82550; 82607; 82728; 83036; 83540; 84153; 84439; 84443; 85025; G0103

== ENCOUNTER 2023-01-24 07:31 | Outpatient (CLI) | payer MEDICARE, SELFPAY ==
[2023-01-24 07:50] LABS: Basophils Absolute Auto 0.04 K/mm3 (0.00-0.10); Basophils Percent Auto 0.6 % (0.0-1.0); Eosinophils Absolute Auto 0.32 K/mm3 (0.02-0.50); Eosinophils Percent Auto 4.7 % (1.0-6.0); Hematocrit 36.7 % (37.0-46.0); Hemoglobin 12.1 g/dL (12.4-15.3); Immature Granulocyte Absolute 0.05 K/mm3 (0.00-0.00); Immature Granulocyte Percent A 0.7 % (0.0-0.0); Lymphocytes Absolute Auto 1.73 K/mm3 (1.10-4.50); Lymphocytes Percent Auto 25.5 % (18.0-42.0); Mean Corpuscular Hemoglobin 30.3 pg (27.0-31.0); Mean Platelet Volume 8.9 fl (8.7-11.0); Monocytes Absolute Auto 0.59 K/mm3 (0.10-0.90); Monocytes Percent Auto 8.7 % (2.0-11.0); Neutrophils Absolute Auto 4.1 K/mm3 (1.7-7.2); Neutrophils Percent Auto 59.8 % (50.0-70.0); Platelet Count Result 195 K/mm3 (150-420); Red Blood Count 3.99 M/mm3 (4.70-6.10); Red Cell Distribution Width 12.9 % (11.6-14.4); White Blood Count 6.8 K/mm3 (4.8-10.8)
[2023-01-24 07:53] LABS: Appearance Urine Clear (Clear); Bilirubin Urine Negative (Negative); Blood Urine Negative (Negative); Color Urine Light Yellow (Yellow); Glucose Urine UA Negative (Negative); Ketones Urine Negative (Negative); Leukocyte Esterase Ur Negative (Negative); Nitrate Urine Negative (Negative); Protein Urine Negative (Negative); Specific Grav Ur >= 1.030 (1.010-1.020); Urobilinogen Urine 0.2 mg/dL (0.2-1.0); pH Urine 5.5 (5.0-8.0)
[2023-01-24 08:01] LABS: Hemoglobin A1C 7.5 % (<5.7)
[2023-01-24 08:02] LABS: Add Urine Microscopic? YES
[2023-01-24 08:05] LABS: Creatinine Urine 110.44 mg/dL (40-278); MALB Creatinine Ratio 11.7 mg/g (0-30); Microalbumin Urine Random < 13.0 mg/L
[2023-01-24 08:36] LABS: Alanine Aminotransferase 94 U/L (16-63); Albumin Level 3.3 g/dL (3.4-5.0); Alkaline Phosphatase 106 U/L (46-116); Anion Gap 8 mmol/L (8-16); Aspartate Amino Transferase 44 U/L (15-37); Bilirubin,Total 0.2 mg/dL (0.00-1.00); Blood Urea Nitrogen 29 mg/dL (7-18); Calcium 8.7 mg/dL (8.5-10.1); Carbon Dioxide 28 mmol/L (21-32); Chloride 109 mmol/L (98-108); Estimated Glomerular Filt Rate > 60; Ferritin 63 ng/mL (26-388); Glucose 107 mg/dL (70-99); Iron 84 ug/dL (65-175); Osmolality Calculated 305 mOsm/kg (285-295); Percent Iron Saturation 27 % (12-57); Potassium 4.5 mmol/L (3.5-5.1); Sodium 145 mmol/L (136-145); Total Protein 6.9 g/dL (6.4-8.2)
== END 2023-01-24 07:32 | disposition home or self-care (01) ==
LOC: CHSLAB 07:33
PROVIDERS: PCP Internal Medicine; Visit Provider Internal Medicine
DX: D64.9 Anemia, unspecified (principal); I10 Essential (primary) hypertension; E78.2 Mixed hyperlipidemia; E11.65 Type 2 diabetes mellitus with hyperglycemia
CPT/HCPCS: 36415; 80053; 81001; 82043; 82728; 83036; 83540; 83550; 85025

== ENCOUNTER 2023-05-16 07:48 | Outpatient (CLI) | payer MEDICARE, SELFPAY ==
[2023-05-16 08:01] LABS: Appearance Urine Clear (Clear); Bilirubin Urine Negative (Negative); Blood Urine Negative (Negative); Color Urine Yellow (Yellow); Glucose Urine UA Negative (Negative); Ketones Urine Negative (Negative); Leukocyte Esterase Ur Negative (Negative); Nitrate Urine Negative (Negative); Protein Urine Negative (Negative); Specific Grav Ur >= 1.030 (1.010-1.020); Urobilinogen Urine 0.2 mg/dL (0.2-1.0); pH Urine 5.5 (5.0-8.0)
[2023-05-16 08:04] LABS: Add Urine Microscopic? NO
[2023-05-16 08:08] LABS: Creatinine Urine 154.68 mg/dL (40-278); Hemoglobin A1C 7.5 % (<5.7); MALB Creatinine Ratio 8.4 mg/g (0-30); Microalbumin Urine Random < 13.0 mg/L
[2023-05-16 08:59] LABS: Alanine Aminotransferase 68 U/L (16-63); Albumin Level 3.1 g/dL (3.4-5.0); Alkaline Phosphatase 94 U/L (46-116); Anion Gap 10 mmol/L (8-16); Aspartate Amino Transferase 39 U/L (15-37); Bilirubin,Total 0.2 mg/dL (0.00-1.00); Blood Urea Nitrogen 25 mg/dL (7-18); Calcium 8.2 mg/dL (8.5-10.1); Carbon Dioxide 26 mmol/L (21-32); Chloride 107 mmol/L (98-108); Estimated Glomerular Filt Rate 59; Glucose 110 mg/dL (70-99); Osmolality Calculated 301 mOsm/kg (285-295); Potassium 4.7 mmol/L (3.5-5.1); Sodium 143 mmol/L (136-145); Total Protein 6.9 g/dL (6.4-8.2)
== END 2023-05-16 07:49 | disposition home or self-care (01) ==
LOC: CHSLAB 07:49
PROVIDERS: PCP Internal Medicine; Visit Provider Internal Medicine
DX: E11.65 Type 2 diabetes mellitus with hyperglycemia (principal)
CPT/HCPCS: 36415; 80053; 81003; 82043; 83036

== ENCOUNTER 2023-09-23 07:30 | Outpatient (CLI) | payer MEDICARE, SELFPAY ==
[2023-09-23 07:43] LABS: Basophils Absolute Auto 0.05 K/mm3 (0.00-0.10); Basophils Percent Auto 0.7 % (0.0-1.0); Eosinophils Absolute Auto 0.39 K/mm3 (0.02-0.50); Eosinophils Percent Auto 5.3 % (1.0-6.0); Hematocrit 37.2 % (37.0-46.0); Immature Granulocyte Absolute 0.05 K/mm3 (0.00-0.00); Immature Granulocyte Percent A 0.7 % (0.0-0.0); Lymphocytes Absolute Auto 1.84 K/mm3 (1.10-4.50); Lymphocytes Percent Auto 25.2 % (18.0-42.0); Mean Corpuscular HGB Conc 32.3 g/dL (32-36); Mean Corpuscular Hemoglobin 29.3 pg (27.0-31.0); Mean Corpuscular Volume 90.7 fL (78.0-102.0); Mean Platelet Volume 8.8 fl (8.7-11.0); Monocytes Percent Auto 8.2 % (2.0-11.0); Neutrophils Absolute Auto 4.37 K/mm3 (1.70-7.20); Neutrophils Percent Auto 59.9 % (50.0-70.0); Platelet Count Result 204 K/mm3 (150-420); Red Cell Distribution Width 12.6 % (11.6-14.4); White Blood Count 7.3 K/mm3 (4.8-10.8)
[2023-09-23 07:51] LABS: Appearance Urine Clear (Clear); Bilirubin Urine Negative (Negative); Blood Urine Negative (Negative); Color Urine Yellow (Yellow); Glucose Urine UA Negative (Negative); Ketones Urine Negative (Negative); Leukocyte Esterase Ur Negative (Negative); Nitrate Urine Negative (Negative); Protein Urine Negative (Negative); Specific Grav Ur 1.025 (1.010-1.020); Urobilinogen Urine 0.2 mg/dL (0.2-1.0); pH Urine 5.5 (5.0-8.0)
[2023-09-23 07:55] LABS: Add Urine Microscopic? NO
[2023-09-23 07:56] LABS: Creatinine Urine 152.98 mg/dL (40-278); MALB Creatinine Ratio 8.4 mg/g (0-30); Microalbumin Urine Random < 13.0 mg/L
[2023-09-23 07:58] LABS: Hemoglobin A1C 7.6 % (<5.7)
[2023-09-23 08:30] LABS: Alanine Aminotransferase 55 U/L (16-63); Albumin Level 3.2 g/dL (3.4-5.0); Alkaline Phosphatase 96 U/L (46-116); Anion Gap 9 mmol/L (4-12); Aspartate Amino Transferase 37 U/L (15-37); Bilirubin,Total 0.2 mg/dL (0.00-1.00); Blood Urea Nitrogen 35 mg/dL (7-18); Calcium 8.2 mg/dL (8.5-10.1); Carbon Dioxide 26 mmol/L (21-32); Chloride 108 mmol/L (98-108); Cholesterol 135 mg/dL (0-200); Creatine Kinase 39 U/L (39-308); Estimated Glomerular Filt Rate 44; Ferritin 92 ng/mL (26-388); Glucose 70 mg/dL (70-99); HDL Direct 38 mg/dL (40-60); Iron 84 ug/dL (65-175); LDL Cholesterol Calculated 56 mg/dL (<130); Osmolality Calculated 302 mOsm/kg (285-295); Percent Iron Saturation 28 % (12-57); Potassium 4.9 mmol/L (3.5-5.1); Sodium 143 mmol/L (136-145); Triglycerides 204 mg/dL (0-150); Uric Acid 7.6 mg/dL (3.5-7.2)
== END 2023-09-23 07:31 | disposition home or self-care (01) ==
LOC: CHSLAB 07:32
PROVIDERS: PCP Internal Medicine; Visit Provider Internal Medicine
DX: E11.65 Type 2 diabetes mellitus with hyperglycemia (principal); I10 Essential (primary) hypertension; E78.2 Mixed hyperlipidemia; D64.9 Anemia, unspecified; E79.0 Hyperuricemia without signs of inflammatory arthritis and tophaceous disease
CPT/HCPCS: 36415; 80053; 80061; 81003; 82043; 82550; 82728; 83036; 83540; 83550; 84550; 85025

== ENCOUNTER 2023-10-31 12:35 | Outpatient (CLI) | payer MEDICARE, OTHER, SELFPAY ==
--- NOTE | ~2023-10-31 | US_ITS ---
EXAMINATION: US arterial ankle brachial ind DATE: 10/31/2023 13:25 INDICATION: Peripheral arterial occlusive disease. TECHNIQUE: Segmental pressures and plethysmographic and Doppler waveforms of the brachial and lower e xtremity arteries were obtained. COMPARISON: None. FINDINGS: Right and left brachial artery pressures of 146 mm Hg and 143 mm Hg, respectively, are concordant (no rmal difference <= 30 mmHg). The right ankle-brachial index (GASTON) is indeterminate due to inability to occlude at the right waterproofer helper ior tibial or dorsalis pedis arteries (normal >= 0.9-1.0). The right great toe-brachial index (TBI) i s 1.11 (normal >= 0.65). Arterial Doppler waveforms are triphasic with brisk systolic upstrokes at jeff th right posterior tibial and dorsalis pedis arteries. The left GASTON is also indeterminate due to inability to occlude the left dorsalis pedis and posterior tibial arteries. The left TBI is 0.95. Arterial Doppler waveforms are triphasic with brisk systolic u pstrokes at both left posterior tibial and dorsalis pedis arteries. IMPRESSION: 1. No significant arterial occlusive disease with normal bilateral TBI's. Reviewed, dictated and finalized at location A.
== END 2023-10-31 12:36 | disposition home or self-care (01) ==
LOC: CHSIMG 12:37
PROVIDERS: PCP Internal Medicine; Visit Provider Internal Medicine
DX: I73.9 Peripheral vascular disease, unspecified (principal)
CPT/HCPCS: 93922

== ENCOUNTER 2023-11-22 09:34 | Outpatient (CLI) | payer MEDICARE, OTHER, SELFPAY ==
[2023-11-22 11:01] LABS: Anion Gap 7 mmol/L (4-12); Blood Urea Nitrogen 35 mg/dL (7-18); Calcium 8.1 mg/dL (8.5-10.1); Carbon Dioxide 29 mmol/L (21-32); Chloride 101 mmol/L (98-108); Estimated Glomerular Filt Rate 33; Glucose 172 mg/dL (70-99); Osmolality Calculated 296 mOsm/kg (285-295); Potassium 3.6 mmol/L (3.5-5.1); Sodium 137 mmol/L (136-145)
== END 2023-11-22 09:35 | disposition home or self-care (01) ==
PROVIDERS: PCP Internal Medicine; Visit Provider Internal Medicine
DX: I10 Essential (primary) hypertension (principal)
CPT/HCPCS: 36415; 80048

== ENCOUNTER 2023-11-24 10:04 | Outpatient (CLI) | payer MEDICARE, OTHER, SELFPAY ==
--- NOTE | ~2023-11-24 | CT_ITS ---
EXAMINATION: CT abdomen pelvis wo con DATE: 11/24/2023 10:50 INDICATION: Kidney stone TECHNIQUE: Computed tomography (CT) of the abdomen and pelvis was performed without intravenous contr ast. Automated exposure control and iterative reconstruction technique were employed. The dose-length product was 1251.54 mGy-cm. COMPARISON: None FINDINGS: Lung bases are clear. Heart size is normal. No pericardial or pleural effusion. Atherosclerotic coron trev artery calcifications. Elissa-en-Y gastric bypass procedure with retrocolic Elissa limb and jejunojej unal anastomosis in the left abdomen. Splenic calcifications consistent with old granulomatous diseas e. Liver, gallbladder, pancreas and bilateral adrenal glands are normal. 3.2 cm right renal cyst. No urolithiasis either kidney or along either the left or right ureters. No hydronephrosis. There are fe w scattered clonic diverticula without adjacent inflammatory stranding to suggest diverticulitis. No bowel obstruction. Normal appendix. Bladder is normal. No free intraperitoneal gas or fluid. No patho logically enlarged abdominal or pelvic lymphadenopathy. Moderate-sized fat-containing left inguinal h ernia. Unchanged 1.6 m right renal artery aneurysm with small amount of peripheral calcification. Mil d to moderate degenerative skeletal changes in the pelvis and visualized lumbar and lower thoracic sp ine. There are bridging osteophytes at multiple levels consistent with diffuse idiopathic skeletal hy perostosis (DISH). IMPRESSION: 1. No urolithiasis or acute intra-abdominal/pelvic process. 2. Unchanged 1.6 cm right renal artery aneurysm. Reviewed, dictated and finalized at location A.
== END 2023-11-24 10:05 | disposition home or self-care (01) ==
PROVIDERS: PCP Internal Medicine; Visit Provider Internal Medicine
DX: N20.0 Calculus of kidney (principal); I72.2 Aneurysm of renal artery
CPT/HCPCS: 74176

== ENCOUNTER 2023-11-29 12:06 | Outpatient (CLI) | payer MEDICARE, SELFPAY ==
[2023-11-29 12:52] LABS: Anion Gap 6 mmol/L (4-12); Blood Urea Nitrogen 16 mg/dL (7-18); Calcium 8.2 mg/dL (8.5-10.1); Carbon Dioxide 32 mmol/L (21-32); Chloride 106 mmol/L (98-108); Estimated Glomerular Filt Rate > 60; Glucose 106 mg/dL (70-99); Osmolality Calculated 299 mOsm/kg (285-295); Potassium 3.9 mmol/L (3.5-5.1); Sodium 144 mmol/L (136-145)
== END 2023-11-29 12:07 | disposition home or self-care (01) ==
LOC: CHSLAB 12:07
PROVIDERS: PCP Internal Medicine; Visit Provider Internal Medicine
DX: I10 Essential (primary) hypertension (principal)
CPT/HCPCS: 36415; 80048

== ENCOUNTER 2024-05-17 14:33 | Emergency (ER) | payer MEDICARE, OTHER, SELFPAY ==
[2024-05-17] VITALS (9 sets, daily range): BP systolic 157–198; BP diastolic 85–94; PULSE 73–84; RESP 16–22; TEMP 36.8; O2SAT 84–99
--- NOTE | ~2024-05-17 | CT_ITS ---
EXAMINATION: CT brain wo con DATE: 05/17/2024 14:50 INDICATION: Right facial weakness. TECHNIQUE: Computed tomography (CT) of the head was performed without intravenous contrast. The mA wa s adjusted according to patient size. Iterative reconstruction technique was employed. The dose-lengt h product was 681.00 mGy-cm. COMPARISON: Brain MRI 06/21/2020 FINDINGS: There is no intracranial hemorrhage, acute infarction, or abnormal intracranial mass lesion . The ventricles are normal in size. There are likely changes of ocular lens replacement surgeries. T here is mild mucosal thickening in the paranasal sinuses. The mastoid air cells are normal. IMPRESSION: 1. Normal brain. Reviewed, dictated and finalized at location A. NING DEVELOPMENT MANAGER IMPRESSION: 1. Normal brain.
--- OUTSIDE RECORDS SUMMARY | 2024-05-17 14:44 | XMS_ITS | Referral Summary ---
Author Organization [facility] Address [address] [place] [address] Care Team Providers Care Mortgage Loan Closer Name Role Phone Michael Walker MD Primary Care Provider [phone] Allergies Active Allergy Reactions Criticality Noted Date Comments Triamterene-Hydrochl orothiazid Other (See comments) Low 03/05/2013 Severe stomach cramps Niacin Rash High 09/30/2017 Medications calcium carbonate-vitam in D3 (CALCIUM 500 + D) 1,250mg (500mg elemental) - 200 units per tablet 600 mg 1 tab twice a day Active losartan (COZAAR) 25 mg tablet TAKE 1 TAB EVERY OTHER DAY Active dorzolamide (TRUSOPT) 2 % ophthalmic solution INSTILL 1 DROP INTO LEFT EYE TWICE DAILY 09/14/2017 Active glimepiride (AMARYL) 1 mg tabletIndicatio ns:type 2 diabetes mellitus daily. Active glucosamine sulfate 2KCl (GLUCOSAMINE RELIEF) 500 mg capsule TKE 1 TAB TWICE DAILY Active ferrous sulfate 325 mg (65 mg of elemental iron) tabletIndicatio ns:Iron Deficiency Anemia daily. Active multivitamin no.44-vit D3-K 1,000-800 unit-mcg capsule daily. Active timolol (TIMOPTIC) 0.5 % ophthalmic solution INSTILL 1 DROP INTO LEFT EYE TWICE DAILY 09/14/2017 Active lovastatin (MEVACOR) 10 mg tablet 09/02/2017 Active metFORMIN (GLUCOPHAGE) 1,000 mg tablet Take 1 tablet (1,000 mg total) by mouth 2 (two) times a day with meals Active cholecalciferol (VITAMIN D-3) 50,000 unit capsule Take 50,000 Units by mouth once a week Active carvediloL (COREG) 12.5 mg tablet 11/21/2019 Active triamterene-hyd roCHLOROthiazid e 37.5-25 mg per tablet 08/26/2020 Active primidone (MYSOLINE) 50 mg tablet 08/19/2020 Active cyanocobalamin (Vitamin B-12) 2,000 mcg tablet Active docusate sodium (STOOL SOFTENER ORAL) Take by mouth Active Trulicity 4.5 mg/0.5 mL pen injector 11/29/2022 Active Active Problems Problem Noted Date Diagnosed Date Diabetic polyneuropathy asso ciated with type 2 diabetes mellitus ([facility]) 10/07/2020 Gait disturbance 10/07/2020 History of bariatric surgery 09/19/2015 Obesity with body mass index 30 or greater 09/18 Intestinal malabsorption 09/19/2015 Obesity 09/19/2015 Increased body mass index (BMI) 03/15/2014 No diagnosis on Braxton I 06/27/2013 Morbid obesity 04/25/2013 Aneurysm of renal artery ([facility]) 03/12/2013 Immunizations Name Administration Dates Next Due Pfizer SARS-CoV-2 Monovalent Vaccination (12+ Yrs) SUERO-READY TO USE 08/25/2021 Social History Tobacco Use Types Packs/Day Years Used Date Smoking Tobacco: Never Smokeless Tobacco: Never Tobacco Cessation:Counseling Given: Not Answered Alcohol Use Standard Drinks/Week Comments Yes 4 (1 standard drink = 0.6 oz pur e alcohol) Sex and Gender Information Value Date Recorded Sex Assigned at Not on file 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 Gender Identity Not on file Sexual Orientation Not on file Occupation Industry Job Start Date Job End Date retired Not on file Not on file Not on file Last Filed Vital Signs Vital Sign Reading Time Taken Comments Blood Pressure 158/80 01/03/2023 2:02 PM CDT Pulse 73 01/03/2023 2:02 PM CDT Temperature 36.8 C (98.3 F) 01/05/2021 11:51 AM CDT Respiratory Rate - - Oxygen Saturation 99% 01/03/2023 2:02 PM CDT Inhaled Oxygen Concentration - - Weight 111.6 kg (246 lb) 01/03/2023 2:02 PM CDT Height 175.3 cm (5' 9 ) 01/03/2023 2:02 PM CDT Body Mass Index 36.33 01/03/2023 2:02 PM CDT Plan of Treatment Not on file Procedures Procedure Name Priority Date/Time Associated Diagnosis Comments SERUM LIPID PANEL Routine 09/13/2014 11: 31 AM CDT from Last 3 Months or Most Recently Relevant to Health Maintenance Results * Serum lipid panel (09/13/2014 11:31 AM CDT) Cholesterol 154 0 - 200 mg/dl HISTORICAL RESULTS Comment: Interpretive Data Desirable: <200 mg/dL Borderline high: 200-239 mg/dL High: >240 mg/dL Literature Reference: National Cholesterol Education Program (NCEP) Expert Panel on Detection, Evaluation, and Treatment of High Blood Cholesterol in Adults (Adult Treatment Panel III). Circulation 2004; 110:227. Current interpretive data was last revised on 2005. Triglycerides 90 0 - 150 mg/dl HISTORICAL RESULTS Comment: Interpretive Data Desirable: < 150 mg/dL Borderline High: 150 - 199 mg/dL High: > 200 mg/dL Literature Reference: See Cholesterol Current interpretive data was last revised on 06. HDL 57 40 - 199 mg/dl HISTORICAL RESULTS Comment: Interpretive Data Less than 40 mg/dL - low; A major risk factor for heart disease. Greater than or equal to 60 mg/dL - High; considered protective of heart disease. Literature Reference: See Cholesterol Current interpretive data was last revised on 2007. LDL 79 0 - 129 mg/dl HISTORICAL RESULTS Comment: Interpretive Data Optimal: < 100 mg/dL Near Optimal: 100 - 129 mg/dL Borderline High: 130 - 159 mg/dL High: > 160 mg/dL Literature Reference: See Cholesterol Current interpretive data was last revised on 06. Non-HDL cholesterol, calculated 97 mg/dl HISTORICAL RESULTS Comment: Interpretive Data When triglycerides are >200 mg/dL, non-HDL C is a secondary target of therapy, with a goal 30 mg/dL higher than the identified LDL-C goal. Reference: See Cholesterol Reference. Current interpretive data was last revised 2011. Serum 09/13/2014 11:3 1 AM CDT Kurt Dorantes CYLINDER LOADER LAB BLOOD ORDERABLES Final Result HISTORICAL RESULTS from Last 3 Months or Most Recently Relevant to Health Maintenance Insurance [facility] [place] [place] [id number] [place] [address] [facility] MEDICARE RAILROAD MEDICARE RAILROAD [facility] Care Teams Mortgage Loan Closer Relationship Specialty Start Date End Date Michael Walker MD [address] [place] [address] PCP - General 01/13/07
--- OUTSIDE RECORDS SUMMARY | 2024-05-17 14:45 | XMS_ITS | Clinical Summary ---
Author Organization [facility] Address [address] [place] [address] Care Team Providers Care Nurse Assistant Name Role Phone Michael Walker MD Primary Care Provider [phone] [phone] Allergies Active Allergy Reactions Criticality Noted Date [...] asso ciated with type 2 diabetes mellitus ([facility]) 10/07/2020 Gait disturbance 10/07/2020 History of bariatric surgery 09/19/2015 Obesity with body mass index 30 or greater 09/18 Intestinal malabsorption 09/19/2015 Obesity 09/19/2015 Increased body mass index (BMI) 03/15/2014 No diagnosis on [place] I 06/27/2013 Morbid obesity 04/25/2013 Aneurysm of renal artery ([facility]) 03/12/2013 Immunizations Name Administration Dates Next Due Road Hero SARS-CoV-2 Monovalent Vaccination (12+ Yrs) SUERO-READY TO USE 08/25/2021 Surgical History Surgery Date Site/Laterality Comments GASTRIC BYPASS RETINAL DETACHMENT SURGERY KNEE SURGERY FINGER AMPUTATION Medical History Medical History Date Comments H/O right knee surgery Renal calculi 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/17/2013 Hypertension Hyperlipidemia Diabetes mellitus (HCC) Neuropathy in diabetes ([facility]) Sleep apnea, obstructive Retinal detachment left GERD (gastroesophageal reflux disease) Obesity Benign essential tremor Family History Medical History Relation Name Comments Bipolar disorder Father Leukemia Father Family history of leukemia - (Added by TW Conv) Parkinsonism Father Heart disease Maternal Grandfather Stroke Maternal Grandfather Diabetes Mother Family history of diabetes mellitus - (Added by TW Conv) Parkinsonism Mother Stomach cancer Paternal Grandfather Breast cancer Sister Diabetes Sister Relation Name Status Comments Father Maternal Grandfather Mother Paternal Grandfather Sister Social History Tobacco Use Types Packs/Day Years Used Date Smoking Tobacco: Never Smokeless Tobacco: Never Tobacco Cessation:Counseling Given: Not Answered Alcohol Use Standard Drinks/Week Comments Yes 4 (1 standard drink = 0.6 oz pur e alcohol) Sex and Gender Information Value Date Recorded Sex Assigned at Not on file 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 Gender Identity Not on file Sexual Orientation Not on file Occupation Industry Job Start Date Job End Date retired Not on file Not on file Not on file Obstetrics History Last Filed Vital Signs Vital Sign Reading [...] 01/03/2023 2:02 PM CDT Plan of Treatment Health Maintenance Due Date Last Done Comments Albumin Creatinine Ratio, Urine 1946 Depression Screening 1946 Fall Risk Assessment 1946 Hemoglobin A1C 1946 Hepatitis C Screening 1946 eGFR 1946 Dilated Eye Exam 1946 Foot Exam 1946 Hepatitis B Screening 1964 Zoster Vaccine (1 of 2) 1996 Well Visit 65+ 11/11/2011 Lipid Panel 09/14/2015 09/13/2014 DTaP/Tdap/Td Vaccine (2 - Td or Tdap) 03/29/2022 03/29/2012 Covid-19 Vaccine (2 - 2023-2 5 season) 2023 08/25/2021 Influenza Vaccine (#1) 2023 9, 01/10/2018, 12/15/2016, Additional history exists Pneumococcal vaccine 65+ Completed 10/07/2017, 12/11 Procedures Procedure Name Priority Date/Time Associated Diagnosis [...] 2011. Serum 09/13/2014 11:3 1 AM CDT us Kurt Dorantes NP LAB BLOOD ORDERABLES Final Result HISTORICAL RESULTS from Last 3 Months or Most Recently Relevant to Health Maintenance Insurance MEDICARE RAILROAD [facility] MEDICARE RAILROAD MEDICARE RAILROAD [facility] Address: [address] [address] [place] [address] [facility] Care Teams Nurse Assistant Relationship Specialty Start Date End Date Michael Walker MD [address] [place] [address] PCP - General 01/13/07
--- NOTE | 2024-05-17 14:58 | ED.NEUROSD ---
HPI - Neuro Symptoms/Deficit General Chief Complaint: Suspected CVA Stated Complaint: dropping on left side of face Time Seen by Provider: 05/17/24 14:39 Source: patient and family Mode of arrival: ambulatory Limitations: no limitations History of Present Illness HPI Narrative: This is a 78-year-old male with history of diabetes presents with a right facial droop that involves the right side of his face eyes involved and face involved with no other neurological deficits. The patient has been having a viral syndrome and his symptoms started when he noticed is right-sided facial weakness at 5:00 a.m. this morning. No other neurological deficits no speech deficit no headache no blurry vision no chest pain or shortness of breath no fever chills. Onset (ago): hour(s) Time: 05:00 Location: right face Related Data Home Medications ?Medication ?Instructions ?Recorded ?Confirmed ?Last Taken ?Type calcium carbonate (Calcium 500) 500 mg PO DAILY 06/25/19 06/25/19 Unknown History ferrous sulfate 324 mg (65 mg 324 mg PO DAILY 06/25/19 06/25/19 Unknown History iron) tablet,delayed release glimepiride 2 mg tablet 2 mg PO DAILY 06/25/19 06/25/19 Unknown History losartan 100 mg tablet 100 mg PO DAILY 06/25/19 06/25/19 Unknown History lovastatin 10 mg tablet 5 mg PO DAILY 06/25/19 06/25/19 Unknown History metformin 500 mg tablet,extended 1,000 mg PO BID 06/25/19 06/25/19 Unknown History release 24 hr multivitamin,yg-pmdb-nfbqukvi 1 tablet PO DAILY 06/25/19 06/25/19 Unknown History (Complete Multivitamin tablet) vitamin B12 1,000 mcg-folic acid 1 kateryna sublingual DAILY 06/25/19 06/25/19 Unknown History 400 mcg sublingual lozenge Allergies Allergy/AdvReac Type Severity Reaction Status Date / Time hydrochlorothiazide AdvReac Intermediate CRAMPING Verified 05/17/24 14:45 triamterene AdvReac Intermediate CRAMPING Verified 05/17/24 14:45 Review of Systems Review of Systems: All systems reviewed & are unremarkable except as noted in HPI and below PMFSH Past Medical History Medical History Diabetes mellitus Viral syndrome Exam Const: General: cooperative, healthy appearing, comfortable, no acute distress, well developed, alert, awake and Physically active HENMT: Head: normal to inspection and No palpable skull fracture present Face images:  1. right facial droop with some eye involvement. Mouth: Yes Normal oral and palatal mucosa present Eyes: Other: Difficulty Thony the right eye Neck: Neck: normal visual inspection, full ROM, no lymphadenopathy and no meningeal signs Carotids: normal carotid upstroke Chest: Chest palpation & inspection: normal inspection of the chest Resp: Effort & Inspection: normal respiratory effort Auscultation: clear to auscultation bilaterally Cardio: Jugular venous distension: no JVD Palpation: normal PMI Rate: regular rate Rhythm: regular rhythm Heart sounds: S1 normal heart sound present and S2 normal heart sound present GI: Inspection: normal to inspection Skin: General skin exam: normal color and no rashes or lesions noted Neuro: General: oriented to person, oriented to place, oriented to time, patient oriented x3, gait normal, tone normal, moves all extremities, Normal light touch and pain sensation, no meningeal signs, no focal motor deficits, CN's II-XI intact bilaterally and normal sensation to monofilament Cognition (Neuro): normal cognition Speech: normal speech Gait exam (Neuro): Normal gait present Course Course Emergency Course: during physical exam right facial droop consistent with Hui's palsy no other neurological deficits CT scan performed showed no acute intracranial abnormalities, patient received a dose of 80mg IM Depo-Medrol. Vital Signs Vital signs: Vital Signs Temperature 36.8 C 05/17/24 14:34 Pulse Rate 84 05/17/24 14:34 Respiratory Rate 20 05/17/24 14:34 Blood Pressure 198/94 H 05/17/24 14:34 Pulse Oximetry 84 L 05/17/24 14:34 Oxygen Delivery Room Air 05/17/24 14:34 Temperature 36.8 C 05/17/24 14:34 Pulse Rate 84 05/17/24 14:34 Respiratory Rate 20 05/17/24 14:34 Blood Pressure 198/94 H 05/17/24 14:34 Pulse Oximetry 84 L 05/17/24 14:34 Oxygen Delivery Room Air 05/17/24 14:34 Critical Care Time Critical Care Time Critical Care Time: No Discharge Plan Discharge Clinical Impression: Hui's palsy Patient Disposition: Home, Self-Care Condition: Stable Instructions: Antibiotic Form, Hui Palsy (ED) Additional Instructions: advised to take medication as prescribed and follow-up with primary as scheduled if symptoms persist or worsen should return to the nearest ER. Patient Language: Nigerian Prescriptions: New prednisone 20 mg tablet 20 mg PO DAILY 5 Days Qty: 5 0RF No Action lovastatin 10 mg tablet 5 mg PO DAILY glimepiride 2 mg tablet 2 mg PO DAILY calcium carbonate [Calcium 500] 500 mg calcium (1,250 mg) Tablet 500 mg PO DAILY losartan 100 mg tablet 100 mg PO DAILY metformin 500 mg tablet extended release 24 hr 1,000 mg PO BID Complete Multivitamin Tablet 1 tablet PO DAILY ferrous sulfate 324 mg (65 mg iron) Tablet,Delayed Release (Dr/Ec) 324 mg PO DAILY vitamin F99-xccks acid 1,000-400 mcg Lozenge 1 kateryna SUBLINGUAL DAILY hydrocodone-acetaminophen [[place]] 5-325 mg tablet 1 tablet PO Q6H PRN (Reason: pain) Qty: 15 0RF Follow-up/Referrals: Michael Walker MD [Primary Care Provider] - Time of Disposition: 15:05
[2024-05-17] MEDS: methylPREDNISolone ACETATE 40 MG/ML VIAL 80 MG IM (15:02)
--- OUTSIDE RECORDS SUMMARY | 2024-05-17 15:18 | XMS_ITS | Clinical Summary ---
Author Organization [facility] Address [address] [place] [address] Care Team Providers Care Slurry Tank Operator Name Role Phone Michael Walker MD Primary Care Provider [phone] Allergies Active Allergy Reactions Criticality Noted Date [...] asso ciated with type 2 diabetes mellitus ([facility]) 10/07/2020 Gait disturbance 10/07/2020 History of bariatric surgery 09/19/2015 Obesity with body mass index 30 or greater 09/18 Intestinal malabsorption 09/19/2015 Obesity 09/19/2015 Increased body mass index (BMI) 03/15/2014 No diagnosis on [place] I 06/27/2013 Morbid obesity 04/25/2013 Aneurysm of renal artery ([facility]) 03/12/2013 Immunizations Name Administration Dates Next Due Safer Minicabs SARS-CoV-2 Monovalent Vaccination (12+ Yrs) SUERO-READY TO USE 08/25/2021 Surgical History Surgery Date Site/Laterality Comments GASTRIC BYPASS RETINAL DETACHMENT SURGERY KNEE SURGERY FINGER AMPUTATION Medical History Medical History Date Comments H/O right knee surgery Renal calculi 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/17/2013 Hypertension Hyperlipidemia Diabetes mellitus (HCC) Neuropathy in diabetes ([facility]) Sleep apnea, obstructive Retinal detachment left GERD [...] on file 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
--- OUTSIDE RECORDS SUMMARY | 2024-05-17 15:18 | XMS_ITS | Referral Summary ---
Author Organization [facility] Address [address] [place] [address] Care Team Providers Care Shampoo Person Name Role Phone Michael Walker MD Primary Care Provider [phone] Allergies Active Allergy Reactions Criticality Noted Date [...] asso ciated with type 2 diabetes mellitus ([facility]) 10/07/2020 Gait disturbance 10/07/2020 History of bariatric surgery 09/19/2015 Obesity with body mass index 30 or greater 09/18 Intestinal malabsorption 09/19/2015 Obesity 09/19/2015 Increased body mass index (BMI) 03/15/2014 No diagnosis on [place] I 06/27/2013 Morbid obesity 04/25/2013 Aneurysm of renal artery ([facility]) 03/12/2013 Immunizations Name Administration Dates Next Due [...] on file 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
== END 2024-05-17 15:26 | disposition home or self-care (01) ==
LOC: CHSED 15:11
PROVIDERS: Emergency Provider Emergency Medicine; PCP Internal Medicine
DX: G51.0 Bell's palsy (principal); E11.9 Type 2 diabetes mellitus without complications
CPT/HCPCS: 70450; 96372; 99283; J1010

== ENCOUNTER 2024-05-21 08:11 | Outpatient (CLI) | payer MEDICARE, OTHER, SELFPAY ==
--- OUTSIDE RECORDS SUMMARY | 2024-05-21 08:23 | XMS_ITS | Referral Summary ---
Author Organization [facility] Address [address] [place] [address] Care Team Providers Care Operations Research Manager Name Role Phone Michael Walker MD Primary Care Provider [phone] Allergies Active Allergy Reactions Criticality Noted Date [...] ciated with type 2 diabetes mellitus ([facility]) 10/07/2020 Gait disturbance 10/07/2020 History of bariatric surgery 09/19/2015 Obesity with body mass index 30 or greater 09/18 Intestinal malabsorption 09/19/2015 Obesity 09/19/2015 Increased body mass index (BMI) 03/15/2014 No diagnosis on [place] I 06/27/2013 Morbid obesity 04/25/2013 Aneurysm of renal artery (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
--- OUTSIDE RECORDS SUMMARY | 2024-05-21 08:23 | XMS_ITS | Clinical Summary ---
Author Organization [facility] Address [address] [place] [address] Care Team Providers Care Manager Environmental Health Name Role Phone Michael Walker MD Primary Care Provider [phone] Allergies Active Allergy Reactions Criticality Noted Date [...] asso ciated with type 2 diabetes mellitus ([facility]) 10/07/2020 Gait disturbance 10/07/2020 History of bariatric surgery 09/19/2015 Obesity with body mass index 30 or greater 09/18 Intestinal malabsorption 09/19/2015 Obesity 09/19/2015 Increased body mass index (BMI) 03/15/2014 No diagnosis on [place] I 06/27/2013 Morbid obesity 04/25/2013 Aneurysm of renal artery ([facility]) 03/12/2013 Immunizations Name Administration Dates Next Due [employer] SARS-CoV-2 Monovalent Vaccination (12+ Yrs) SUERO-READY TO USE 08/25/2021 Surgical History Surgery Date Site/Laterality Comments GASTRIC BYPASS RETINAL DETACHMENT SURGERY KNEE SURGERY FINGER AMPUTATION Medical History Medical History Date Comments H/O right knee surgery Renal calculi 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/17/2013 Hypertension Hyperlipidemia Diabetes mellitus (HCC) Neuropathy in diabetes ([facility]) Sleep apnea, obstructive Retinal detachment left [...] on file 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
[2024-05-21 09:32] LABS: Basophils Absolute Auto 0.06 K/mm3 (0.00-0.10); Basophils Percent Auto 0.7 % (0.0-1.0); Eosinophils Absolute Auto 0.26 K/mm3 (0.02-0.50); Hematocrit 37.7 % (37.0-46.0); Hemoglobin 12.4 g/dL (12.4-15.3); Immature Granulocyte Absolute 0.06 K/mm3 (0.00-0.00); Immature Granulocyte Percent A 0.7 % (0.0-0.0); Lymphocytes Absolute Auto 1.49 K/mm3 (1.10-4.50); Lymphocytes Percent Auto 17.1 % (18.0-42.0); Mean Corpuscular HGB Conc 32.9 g/dL (32-36); Mean Corpuscular Hemoglobin 29.1 pg (27.0-31.0); Mean Corpuscular Volume 88.5 fL (78.0-102.0); Mean Platelet Volume 9.2 fl (8.7-11.0); Monocytes Percent Auto 9.2 % (2.0-11.0); Neutrophils Absolute Auto 6.05 K/mm3 (1.70-7.20); Neutrophils Percent Auto 69.3 % (50.0-70.0); Platelet Count Result 239 K/mm3 (150-420); Red Blood Count 4.26 M/mm3 (4.70-6.10); Red Cell Distribution Width 13.3 % (11.6-14.4); White Blood Count 8.7 K/mm3 (4.8-10.8)
[2024-05-21 10:15] LABS: Creatinine Urine 95.22 mg/dL (40-278); MALB Creatinine Ratio 33.3 mg/g (0-30); Microalbumin Urine Random 31.8 mg/L
[2024-05-21 10:25] LABS: Add Urine Microscopic? NO; Appearance Urine Clear (Clear); Bilirubin Urine Negative (Negative); Blood Urine Negative (Negative); Color Urine Light Yellow (Yellow); Glucose Urine UA Negative (Negative); Ketones Urine Negative (Negative); Leukocyte Esterase Ur Negative LEU/UL (Negative); Nitrate Urine Negative (Negative); Protein Urine Negative (Negative); Specific Grav Ur 1.025 (1.010-1.020); Urobilinogen Urine 0.2 mg/dL (0.2-1.0); pH Urine 5.5 (5.0-8.0)
[2024-05-21 10:34] LABS: Alanine Aminotransferase 44 U/L (16-63); Albumin Level 3.1 g/dL (3.4-5.0); Alkaline Phosphatase 115 U/L (46-116); Anion Gap 9 mmol/L (4-12); Aspartate Amino Transferase 28 U/L (15-37); Bilirubin,Total 0.3 mg/dL (0.00-1.00); Blood Urea Nitrogen 13 mg/dL (7-18); Calcium 8.2 mg/dL (8.5-10.1); Carbon Dioxide 29 mmol/L (21-32); Chloride 106 mmol/L (98-108); Cholesterol 156 mg/dL (0-200); Creatine Kinase 39 U/L (39-308); Estimated Glomerular Filt Rate > 60; Ferritin 94 ng/mL (26-388); Glucose 107 mg/dL (70-99); HDL Direct 48 mg/dL (40-60); Iron 68 ug/dL (65-175); LDL Cholesterol Calculated 77 mg/dL (<130); Osmolality Calculated 298 mOsm/kg (285-295); Potassium 3.7 mmol/L (3.5-5.1); Prostate Specific Antigen 2.9 ng/mL (< OR = 4.0); Sodium 144 mmol/L (136-145); Total Protein 7.1 g/dL (6.4-8.2); Triglycerides 156 mg/dL (0-150)
[2024-05-21 11:44] LABS: Hemoglobin A1C 7.4 % (<5.7)
[2024-05-23 09:38] LABS: Vitamin D 25 Hydroxy 76 ng/mL (30-100)
== END 2024-05-21 08:12 | disposition home or self-care (01) ==
PROVIDERS: PCP Internal Medicine; Visit Provider Internal Medicine
DX: I10 Essential (primary) hypertension (principal); E78.2 Mixed hyperlipidemia; E55.9 Vitamin D deficiency, unspecified; E11.65 Type 2 diabetes mellitus with hyperglycemia; D64.9 Anemia, unspecified; N39.0 Urinary tract infection, site not specified; Z12.5 Encounter for screening for malignant neoplasm of prostate
CPT/HCPCS: 36415; 80053; 80061; 81003; 82043; 82306; 82550; 82652; 82728; 83036; 83540; 84153; 84550; 85025; G0103

== ENCOUNTER 2024-05-22 10:16 | Outpatient (CLI) | payer MEDICARE, OTHER, SELFPAY ==
--- OUTSIDE RECORDS SUMMARY | 2024-05-22 11:26 | XMS_ITS | Referral Summary ---
Author Organization [facility] Address [address] [place] [address] Care Team Providers Care Agency Service Coordinator Name Role Phone Michael Walker MD Primary Care Provider [phone] Allergies Active Allergy Reactions Criticality Noted Date [...] asso ciated with type 2 diabetes mellitus ([facility]) 10/07/2020 Gait disturbance 10/07/2020 History of bariatric surgery 09/19/2015 Obesity with body mass index 30 or greater 09/18 Intestinal malabsorption 09/19/2015 Obesity 09/19/2015 Increased body mass index (BMI) 03/15/2014 No diagnosis on [place] I 06/27/2013 Morbid obesity 04/25/2013 Aneurysm of renal artery ([facility]) 03/12/2013 Immunizations Name Administration Dates [...] on file 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
--- OUTSIDE RECORDS SUMMARY | 2024-05-22 11:26 | XMS_ITS | Clinical Summary ---
Author Organization [facility] Address [address] [place] [address] Care Team Providers Care Engineering Production Liaison Name Role Phone Michael Walker MD Primary Care Provider [phone] Allergies Active Allergy Reactions Criticality Noted Date [...] asso ciated with type 2 diabetes mellitus ([facility]) 10/07/2020 Gait disturbance 10/07/2020 History of bariatric surgery 09/19/2015 Obesity with body mass index 30 or greater 09/18 Intestinal malabsorption 09/19/2015 Obesity 09/19/2015 Increased body mass index (BMI) 03/15/2014 No diagnosis on [place] I 06/27/2013 Morbid obesity 04/25/2013 Aneurysm of renal artery ([facility]) 03/12/2013 Immunizations Name Administration Dates Next Due Aurality SARS-CoV-2 Monovalent Vaccination (12+ Yrs) SUERO-READY TO USE 08/25/2021 Surgical History Surgery Date Site/Laterality Comments GASTRIC BYPASS RETINAL DETACHMENT SURGERY KNEE SURGERY FINGER AMPUTATION Medical History Medical History Date Comments H/O right knee surgery Renal calculi 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/17/2013 Hypertension Hyperlipidemia Diabetes mellitus (HCC) Neuropathy in diabetes ([facility]) Sleep apnea, obstructive Retinal detachment left GERD [...] on file 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
== END 2024-05-22 10:17 | disposition home or self-care (01) ==
LOC: CHSLAB 10:21
PROVIDERS: PCP Internal Medicine; Visit Provider Internal Medicine
DX: K12.1 Other forms of stomatitis (principal)
CPT/HCPCS: 87102; 87206

== ENCOUNTER 2024-08-22 07:34 | Outpatient (CLI) | payer MEDICARE, SELFPAY ==
--- OUTSIDE RECORDS SUMMARY | 2024-08-22 07:39 | XMS_ITS | Clinical Summary ---
Author Organization [facility] Address [address] [place] [address] Care Team Providers Care Sports Book Server Name Role Phone Michael Walker MD Primary Care Provider [phone] Allergies Active Allergy Reactions Criticality Noted Date [...] asso ciated with type 2 diabetes mellitus 10/07/2020 Gait disturbance 10/07/2020 History of bariatric surgery 09/19/2015 Obesity with body mass index 30 or greater 09/18 Intestinal malabsorption 09/19/2015 Obesity 09/19/2015 Increased body mass index (BMI) 03/15/2014 No diagnosis on [place] I 06/27/2013 Morbid obesity 04/25/2013 Aneurysm of renal artery 03/12/2013 Immunizations Immunization Administration Dates Next Due Pfizer SARS-CoV-2 Monovalent Vaccination (12+ Yrs) SUERO-READY TO USE 08/25/2021 Surgical History Surgery Date Site/Laterality Comments GASTRIC BYPASS RETINAL DETACHMENT SURGERY KNEE SURGERY FINGER AMPUTATION Medical History Medical History Date Comments H/O right knee surgery Renal calculi 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/17/2013 Hypertension Hyperlipidemia Diabetes mellitus (HCC) Neuropathy in diabetes (HCC) Sleep apnea, obstructive Retinal detachment left GERD [...] on file 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
--- OUTSIDE RECORDS SUMMARY | 2024-08-22 07:39 | XMS_ITS | Referral Summary ---
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 Care Teams Dry Primer Powder Blender Relationship Specialty Start Date End Date Michael Walker MD [address] [place] [address] PCP - General 01/13/07
[2024-08-22 08:09] LABS: Add Urine Microscopic? NO; Appearance Urine Clear (Clear); Bilirubin Urine Negative (Negative); Blood Urine Negative (Negative); Color Urine Yellow (Yellow); Glucose Urine UA Negative (Negative); Ketones Urine Negative (Negative); Leukocyte Esterase Ur Negative (Negative); Nitrate Urine Negative (Negative); Protein Urine Negative (Negative); Specific Grav Ur 1.025 (1.010-1.020); Urobilinogen Urine 0.2 mg/dL (0.2-1.0); pH Urine 5.5 (5.0-8.0)
[2024-08-22 10:35] LABS: Alanine Aminotransferase 35 U/L (6-50); Albumin Level 3.5 g/dL (3.5-5.1); Alkaline Phosphatase 111 U/L (38-126); Anion Gap 5 mmol/L (4-12); Aspartate Amino Transferase 38 U/L (17-59); Bilirubin,Total 0.4 mg/dL (0.2-1.3); Blood Urea Nitrogen 13 mg/dL (9-20); Calcium 8.2 mg/dL (8.4-10.2); Carbon Dioxide 28 mmol/L (22-30); Chloride 110 mmol/L (98-107); Estimated Glomerular Filt Rate > 60; Glucose 78 mg/dL (65-110); Osmolality Calculated 295 mOsm/kg (285-295); Potassium 3.8 mmol/L (3.4-5.0); Sodium 143 mmol/L (137-145); Total Protein 6.5 g/dL (6.3-8.2)
[2024-08-22 11:33] LABS: Hemoglobin A1C 7.1 % (<5.7)
== END 2024-08-22 07:35 | disposition home or self-care (01) ==
LOC: CHSLAB 07:35
PROVIDERS: PCP Internal Medicine; Visit Provider Internal Medicine
DX: I10 Essential (primary) hypertension (principal); E11.65 Type 2 diabetes mellitus with hyperglycemia
CPT/HCPCS: 36415; 80053; 81003; 83036

== ENCOUNTER 2024-09-06 13:52 | Outpatient (CLI) | payer MEDICARE, OTHER, SELFPAY ==
--- NOTE | ~2024-09-06 | CT_ITS ---
EXAMINATION: CT abdomen pelvis wo con DATE: 09/06/2024 14:14 INDICATION: Nephrolithiasis. Left flank pain. TECHNIQUE: Computed tomography (CT) of the abdomen and pelvis was performed without intravenous contr ast. Automated exposure control and iterative reconstruction technique were employed. The dose-length product was 669.17 mGy-cm. COMPARISON: None FINDINGS: Lung bases are clear. Heart size is normal. Atherosclerotic coronary artery calcification. No pericar dial or pleural effusion. Postoperative change of prior gastric bypass procedure. And a few small hep atic and splenic calcifications consistent with old granulomatous disease. Gallbladder, pancreas and bilateral adrenal glands are normal. 3.2 cm parapelvic cyst at the right renal hilum. 2 mm nonobstruc ting stone at a middle calyx of the right kidney. No other urolithiasis or hydronephrosis on either t he left or right. 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 Small amount of heterotopic ossification along the inferior left posterior pararenal spa ce. Bladder is normal. Prostatomegaly measuring 4.4 x 3.0 cm. Small fat-containing left inguinal db ia. Bowels including the appendix are unremarkable. No free intraperitoneal gas or fluid. No patholog ically enlarged abdominal or pelvic lymphadenopathy. Mild to moderate thoracic and lower lumbar spond ylosis with bridging osteophytes at multiple levels consistent with diffuse idiopathic skeletal hyper ostosis (DISH). IMPRESSION: 1. Nonobstructing 2 mm right renal stone. No ureteral stones or hydronephrosis. 2. 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 3. Small fat-containing left inguinal hernia. 4. Mild prostatomegaly. Reviewed, dictated and finalized at location A. IMPRESSION: 1. Nonobstructing 2 mm right renal stone. No ureteral stones or hydronephrosis. 2. Interval increase in size of a now 2.3 cm partially rim calcified right марина l artery aneurysm. 3. Small fat-containing left inguinal hernia. 4. Mild prostatomegaly.
--- OUTSIDE RECORDS SUMMARY | 2024-09-06 14:02 | XMS_ITS | Referral Summary ---
Author Organization [facility] Address [address] [place] [address] Care Team Providers Care Franchise Specialist Name Role Phone Michael Walker MD Primary Care Provider [phone] Allergies Active Allergy Reactions Criticality Noted Date [...] mass index (BMI) 03/15/2014 No diagnosis on [place] I 06/27/2013 Morbid obesity 04/25/2013 Aneurysm of [...] on file Legal Sex Male 12:29 AM MEDICAL ASSISTANT PRN Gender Identity Not on file Sexual Orientation [...] 2:02 PM CDT Height 175.3 cm (5' 9) 01/03/2023 2:02 PM CDT Body Mass Index [...] 11:3 1 AM CDT us Kurt Dorantes PRIMARY CARE COORDINATOR LAB BLOOD ORDERABLES Final Result HISTORICAL RESULTS from Last 3 Months or Most Recently Relevant to Health Maintenance Insurance [facility]IC[facility] Care Teams Franchise Specialist Relationship Specialty Start Date End Date Michael Walker MD [address] [place] [address] PCP - General 01/13/07
--- OUTSIDE RECORDS SUMMARY | 2024-09-06 14:02 | XMS_ITS | Clinical Summary ---
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
== END 2024-09-06 13:53 | disposition home or self-care (01) ==
LOC: CHSIMG 13:57
PROVIDERS: PCP Internal Medicine; Visit Provider Internal Medicine
DX: R10.9 Unspecified abdominal pain (principal); N20.0 Calculus of kidney; I72.2 Aneurysm of renal artery; K40.90 Unilateral inguinal hernia, without obstruction or gangrene, not specified as recurrent; N40.0 Benign prostatic hyperplasia without lower urinary tract symptoms
CPT/HCPCS: 74176

== ENCOUNTER 2024-10-04 09:08 | Outpatient (CLI) | payer MEDICARE, SELFPAY ==
[2024-10-04 09:54] LABS: Anion Gap 5 mmol/L (4-12); Blood Urea Nitrogen 19 mg/dL (9-20); Calcium 8.4 mg/dL (8.4-10.2); Carbon Dioxide 25 mmol/L (22-30); Chloride 110 mmol/L (98-107); Estimated Glomerular Filt Rate > 60; Glucose 248 mg/dL (65-110); Osmolality Calculated 300 mOsm/kg (285-295); Potassium 4.4 mmol/L (3.4-5.0); Sodium 140 mmol/L (137-145)
== END 2024-10-04 09:09 | disposition home or self-care (01) ==
LOC: CHSLAB 09:09
PROVIDERS: PCP Internal Medicine; Visit Provider Internal Medicine
DX: I10 Essential (primary) hypertension (principal)
CPT/HCPCS: 36415; 80048

== ENCOUNTER 2024-10-30 08:01 | Outpatient (CLI) | payer MEDICARE, OTHER, SELFPAY ==
--- OUTSIDE RECORDS SUMMARY | 2024-10-30 08:07 | XMS_ITS | Clinical Summary ---
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
--- OUTSIDE RECORDS SUMMARY | 2024-10-30 08:07 | XMS_ITS | Referral Summary ---
Author Organization 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 Care Teams Clothing Consultant Relationship Specialty Start Date End Date Michael Walker MD [address] [place] [address] PCP - General 01/13/07
[2024-10-30 08:54] LABS: Anion Gap 3 mmol/L (4-12); Blood Urea Nitrogen 23 mg/dL (9-20); Calcium 8.5 mg/dL (8.4-10.2); Carbon Dioxide 29 mmol/L (22-30); Chloride 106 mmol/L (98-107); Estimated Glomerular Filt Rate > 60; Glucose 236 mg/dL (65-110); Osmolality Calculated 297 mOsm/kg (285-295); Potassium 4.3 mmol/L (3.4-5.0); Sodium 138 mmol/L (137-145)
== END 2024-10-30 08:02 | disposition home or self-care (01) ==
LOC: CHSLAB 08:03
PROVIDERS: PCP Internal Medicine; Visit Provider Internal Medicine
DX: I11.0 Hypertensive heart disease with heart failure (principal)
CPT/HCPCS: 36415; 80048

== ENCOUNTER 2025-03-27 08:05 | Outpatient (CLI) | payer MEDICARE, OTHER, SELFPAY ==
--- OUTSIDE RECORDS SUMMARY | 2025-03-27 08:16 | XMS_ITS | Clinical Summary ---
Author Organization [facility] Address [address] [place] [address] Care Team Providers Care Tin Recovery Worker Name Role Phone Michael Walker MD Primary Care Provider [phone] Allergies Active Allergy Reactions Criticality Noted Date [...] mass index (BMI) 03/15/2014 No diagnosis on [place] I 06/27/2013 Morbid obesity 04/25/2013 Aneurysm of renal artery 03/12/2013 Immunizations Immunization Administration Dates Next Due Pfizer SARS-CoV-2 Monovalent Vaccination (12+ Yrs) SUERO-READY TO USE 08/25/2021 Surgical History Surgery Date Site/Laterality Comments GASTRIC BYPASS RETINAL DETACHMENT SURGERY KNEE SURGERY FINGER AMPUTATION Medical History Medical History Date Comments H/O right knee surgery Renal calculi 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/17/2013 Hypertension Hyperlipidemia Diabetes mellitus Neuropathy in diabetes Sleep apnea, obstructive Retinal detachment left GERD [...] on file 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 Gender Identity Not on file Sexual [...] Tdap) 03/29/2022 03/29/2012 Covid-19 Vaccine (2 - 2024-2 6 season) 2024 08/25/2021 Influenza Vaccine (#1) 2024 9, 01/10/2018, 12/15/2016, Additional history exists Pneumococcal [...] 09/13/2014 11:3 1 AM CDT Kurt Dorantes NP LAB BLOOD ORDERABLES Final Result HISTORICAL RESULTS from Last 3 Months or Most Recently Relevant to Health Maintenance Insurance MEDICARE [facility] MEDICARE RAILROAD MEDICARE RA[facility] Care Teams Tin Recovery Worker Relationship Specialty Start Date End Date Michael Walker MD [address] [place] [address] PCP - General 01/13/07
[2025-03-27 08:36] LABS: Hematocrit 35.8 % (37.0-46.0); Hemoglobin 11.7 g/dL (12.4-15.3); Mean Corpuscular HGB Conc 32.7 g/dL (32-36); Mean Corpuscular Hemoglobin 29.8 pg (27.0-31.0); Mean Corpuscular Volume 91.1 fL (78.0-102.0); Platelet Count Result 214 K/mm3 (150-420); Red Blood Count 3.93 M/mm3 (4.70-6.10); White Blood Count 7.1 K/mm3 (4.8-10.8)
[2025-03-27 08:37] LABS: Add Urine Microscopic? NO; Appearance Urine Clear (Clear); Glucose Urine UA Negative (Negative); Leukocyte Esterase Ur Negative LEU/UL (Negative); Nitrate Urine Negative (Negative); Specific Grav Ur 1.025 (1.010-1.020)
[2025-03-27 09:03] LABS: Alanine Aminotransferase 60 U/L (6-50); Albumin Level 3.8 g/dL (3.5-5.1); Alkaline Phosphatase 116 U/L (38-126); Anion Gap 8 mmol/L (4-12); Aspartate Amino Transferase 51 U/L (17-59); Bilirubin,Total 0.3 mg/dL (0.2-1.3); Blood Urea Nitrogen 22 mg/dL (9-20); Calcium 8.8 mg/dL (8.4-10.2); Carbon Dioxide 29 mmol/L (22-30); Chloride 108 mmol/L (98-107); Cholesterol 151 mg/dL (0-200); Estimated Glomerular Filt Rate > 60; Glucose 79 mg/dL (65-110); HDL Direct 37 mg/dL; Iron 100 ug/dL (49-181); Osmolality Calculated 302 mOsm/kg (285-295); Potassium 4.0 mmol/L (3.4-5.0); Sodium 145 mmol/L (137-145); Total Protein 6.8 g/dL (6.3-8.2); Triglycerides 201 mg/dL (<150); Uric Acid 7.2 mg/dL (3.5-8.5)
[2025-03-27 09:37] LABS: Hemoglobin A1C 6.7 % (<5.7)
[2025-03-27 09:38] LABS: Ferritin 79.50 ng/mL (11.1-264)
== END 2025-03-27 08:06 | disposition home or self-care (01) ==
PROVIDERS: PCP Internal Medicine; Visit Provider Internal Medicine
DX: D64.9 Anemia, unspecified (principal); E11.65 Type 2 diabetes mellitus with hyperglycemia; E55.9 Vitamin D deficiency, unspecified; E78.2 Mixed hyperlipidemia; E79.0 Hyperuricemia without signs of inflammatory arthritis and tophaceous disease; I10 Essential (primary) hypertension; N39.0 Urinary tract infection, site not specified
CPT/HCPCS: 36415; 80053; 80061; 81003; 82306; 82728; 83036; 83540; 84550; 85027